=== PATIENT | male | born 1960 | race Caucasian/White ===

== ENCOUNTER 2022-08-29 13:49 | Outpatient (OUT) | payer SELFPAY ==
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
== END 2022-08-29 13:50 ==
PROVIDERS: Visit Provider Anesthesiology Pain Medicine
DX: M47.816 Spondylosis without myelopathy or radiculopathy, lumbar region (principal); M62.838 Other muscle spasm; M54.50 Low back pain, unspecified; G89.29 Other chronic pain
CPT/HCPCS: G0463

== ENCOUNTER 2022-09-01 09:10 | Outpatient (OUT) | payer SELFPAY ==
--- NOTE | 2022-09-01 09:16 | XR_ITS ---
[place] [id number] Patient Name: SHAWN RIVERS MRN: [id number] date: 1960 Sex: M Assigned Patient Location: [facility] Current Patient Location: [facility] Accession/Order Number: [id number] Exam Date: 09/01/2022 09:22 Report Date: 09/01/2022 10:24 At the request of: TEREZA COBOS Procedure: XR lumbar spine 2-3V EXAMINATION: XR lumbar spine 2-3V HISTORY: Lumbar spondylosis ; chronic low back pain, bilateral leg numbness COMPARISON: No relevant comparison available. FINDINGS: BONES: Moderate left convex curvature, and mild straightening of normal lordotic curvature of lumbar spine. Millimeters anterior listhesis of L5 on S1. Moderate-marked degenerative facet arthropathy L3-L4 through L5-S1. DISC SPACES: Moderate disc space narrowing L4-L5. Marked narrowing L2-L3, L5-S1. PARASPINOUS: Skin surface marker located posterior to L2 vertebral body. OTHER: Negative. IMPRESSION: 1. Multilevel marked degenerative disc disease and degenerative facet arthropathy. 2. Grade 1 vs grade 2 anterior listhesis of L5 on S1, likely due to bilateral pars interarticularis defects. 3. Skin surface marker is posterior to L2. Electronically authenticated by: REJI KANG Date: 09/01/2022 10:24
--- NOTE | 2022-09-01 09:45 | MR_ITS ---
[address] [address] Patient Name: SHAWN RIVERS MRN: [id number] date: 1960 Sex: M Assigned Patient Location: [facility] Current Patient Location: [facility] Accession/Order Number: [id number] Exam Date: 09/01/2022 09:45 Report Date: 09/01/2022 11:17 At the request of: TEREZA COBOS Procedure: MR lumbar spine wo con EXAMINATION: MR lumbar spine wo con HISTORY: Lumbar spondylosis ; chronic lumbar and bilateral leg pain, occasional leg numbness and weakness COMPARISON: No relevant comparison available. TECHNIQUE: A variety of imaging planes and parameters were utilized for visualization of suspected pathology. FINDINGS: For the purposes of numbering, sagittal T2 image # 9 extends from the T11 vertebral body superiorly to the S2-S3 level inferiorly. PARASPINAL AREA: Normal with no visible mass. BONES: Grade 1 anterolisthesis of L5 on S1. Straightening of normal lordotic curvature and multilevel edematous degenerative endplate changes (Modic type I). CORD/CAUDA EQUINA: Normal caliber, contour, and signal intensity. DISC LEVELS: 12-L1: Early degenerative disc disease is present without focal protrusion or neural impingement. L1-L2: Early degenerative disc disease is present without focal protrusion or neural impingement. L2-L3: Moderate-marked central canal and mild bilateral foramen narrowing. Prominent posterior disc-osteophyte complex, moderate disc height reduction, and mild degenerative facet arthropathy. L3-L4: Marked central canal and moderate bilateral foramen narrowing. Marked diffuse disc bulging without significant disc height reduction. Moderate degenerative facet arthropathy and ligamentum flavum thickening. L4-L5: Mild central canal and right foramen narrowing. Moderate left foramen narrowing. Posterior disc-osteophyte complex eccentric to the left. Marked narrowing of left lateral disc space. Moderate degenerative facet arthropathy, left greater than right. L5-S1: No significant central canal narrowing. Marked bilateral foramen narrowing. Grade 1 anterior listhesis with posterior central disc bulging, marked disc height reduction, mild degenerative facet arthropathy, bilateral pars interarticularis defects. IMPRESSION: 1. L3-L4 marked central canal narrowing; L2-L3 moderate marked central canal narrowing. Findings secondary to degenerative disc disease and facet arthropathy. 2. L5-S1 marked bilateral foramen narrowing secondary to degenerative changes and grade 1 anterolisthesis from bilateral pars interarticularis defects. 3. Additional mild-moderate narrowing at remaining lumbar levels. Electronically authenticated by: REJI KANG Date: 09/01/2022 11:17
== END 2022-09-01 09:11 | disposition home or self-care (01) ==
LOC: RAD 09:10
PROVIDERS: Visit Provider Anesthesiology Pain Medicine
DX: M47.816 Spondylosis without myelopathy or radiculopathy, lumbar region (principal); R20.0 Anesthesia of skin; R53.1 Weakness; M51.36 Other intervertebral disc degeneration, lumbar region
CPT/HCPCS: 72100; 72148

== ENCOUNTER 2022-09-26 09:52 | Day surgery (SDC) | payer SELFPAY ==
[2022-09-26 10:11] VITALS: BP 155/99; PULSE 82; RESP 16; TEMP 36.3; O2SAT 97
[2022-09-26 10:41] VITALS: RESP 20
[2022-09-26 10:43] VITALS: BP 144/76; PULSE 83; O2SAT 96
[2022-09-26] MEDS: BUPIVACAINE HCL 0.25% PF 25 MG/10 ML VIAL 8 ML INJ (10:44)
--- NOTE | 2022-09-26 10:44 | P.ON_ITS ---
Date of procedure: 09/26/22 Pre-op diagnosis: Lumbar Spondylosis Post-op diagnosis: same Procedure: Bilateral Lumbar 4/5, 5/S1 facet injection Under fluoroscopic guidance Solution injected: 2millilitersMarcaine 0.25% Anesthesia :none Immediate complications none Time out process compliant After informed consent obtained from the patient placed in the Prone proposition . area was prepped and draped in a sterile fashion using betadine. 25 gauge spinal needle inserted over each of the above mentioned target areas . [place] were directed towards the target under fluoroscopic guidance . after encountering each of the targets , no indication of intravascular intraneuronal or intrathecal needle tip placement. Then 0 .5 to 1 Milliliter was injected at each level. [place] removed postoperatively. patient transferred to recovery in stable condition to be discharged home after meeting criteria Surgeon: Baljeet Hickey
[2022-09-26 10:48] VITALS: BP 146/74; PULSE 88; O2SAT 96
== END 2022-09-26 10:53 | disposition home or self-care (01) ==
LOC: SURGOUT 09:53
PROVIDERS: Visit Provider Anesthesiology Pain Medicine
DX: M47.816 Spondylosis without myelopathy or radiculopathy, lumbar region (principal)
CPT/HCPCS: 64493; 64494

== ENCOUNTER 2022-10-25 09:12 | Outpatient (OUT) | payer SELFPAY ==
--- NOTE | 2022-10-25 | CONS_ITS ---
CONSULTATION DATE: ??10/25/2022 TO:? Dr. Kinza Tolbert Patient: Gregor Davalos CHIEF COMPLAINT:? Patient was sent today complaining of bilateral hip pain, as well as bilateral lower back pain, worse on the right than the left side. HISTORY:? He reports it being 5-7/10 pain, described as a pressure sensation with a deep, sharp component, which seems to increase with activities such as standing and walking.? He feels most comfortable in the semi-recumbent position.? Denies any change in bowel and bladder habits or new sensorimotor changes in the lower extremities. MEDICATIONS:? Current medication includes baclofen 10 mg t.i.d.? He reports this does seem to help with his pain symptoms. EXAMINATION:? Notable for patient having no clinical radiculopathy or myelopathy involving the lower extremities.? Patient did have severe pain with lumbar facet loading maneuvers, occurring bilaterally from L4 through S1 with associated myofascial spasm of the lumbar paravertebral muscles.? He has undergone one diagnostic facet joint injection at L4-5, L5-S1.? He reports he was 100% improved starting in the immediate post procedural period, lasting for several hours, with recurrence of pain back to baseline.? IMPRESSION:? At this point, patient?s pain appears to be related to lumbosacral spondylosis and facet joint loading pain clinically, as well as bilateral hip joint pain, right worse than left,? He has had a positive bilateral FABERs sign, worse on the right than the left side.? RECOMMENDATIONS:? I recommend obtaining bilateral hip films, proceeding with a second diagnostic facet joint injection at L4-5, L5-S1. I have increased his baclofen 10 mg pills, 1-2 t.i.d., as he continues to have a fair amount of myofascial spasm of the lumbar paravertebral muscles.? He still expressed the desire to avoid surgery if at all possible.? As part of providing excellent, safe, comprehensive care, the following was completed at our patient's visit: 1. A medication reconciliation and review to ensure accurate knowledge of current/active medications, including asking our patients to inform us about any lorp-pqg-kownlnf medications or herbal remedies/nutritional supplements/alternative remedies. 2. A review to specifically ensure our patients have had annual screening for: elevated body mass index (BMI, see intake chart for exact total), tobacco use, screening for depression, and screening for unhealthy alcohol use.? When screening is concerning, patients are provided with education and the specific recommendation to discuss the concerning health issue and treatment options with their primary care provider. KATHRYN
== END 2022-10-25 09:13 | disposition home or self-care (01) ==
LOC: PM 09:12
PROVIDERS: Visit Provider Nurse Practitioner
DX: M47.817 Spondylosis without myelopathy or radiculopathy, lumbosacral region (principal); M25.551 Pain in right hip; M25.552 Pain in left hip
CPT/HCPCS: G0463

== ENCOUNTER 2022-11-28 08:11 | Day surgery (SDC) | payer SELFPAY ==
[2022-11-28 08:39] VITALS: BP 148/87; PULSE 69; RESP 16; TEMP 36.3; O2SAT 97
[2022-11-28 09:42] VITALS: RESP 20
[2022-11-28 09:43] VITALS: BP 136/84; PULSE 85; O2SAT 96
[2022-11-28] MEDS: BUPIVACAINE HCL 0.25% PF 25 MG/10 ML VIAL 8 ML INJ (09:44)
[2022-11-28 09:48] VITALS: BP 147/87; PULSE 83; O2SAT 94
--- NOTE | 2022-11-28 10:06 | P.ON_ITS ---
Date of procedure: 11/28/22 Pre-op diagnosis: Lumbar Spondylosis Post-op diagnosis: same as pre-op Procedure: Bilateral lumbar 4/5, 5/s1 facet injection Under fluoroscopic guidance Solution injected: 2millilitersMarcaine 0.25% Anesthesia :none Immediate complications none Time out process compliant After informed consent obtained from the patient placed in the Prone proposition . area was prepped and draped in a sterile fashion using betadine. 25 gauge spinal needle inserted over each of the above mentioned target areas . [place] were directed towards the target under fluoroscopic guidance . after encountering each of the targets , no indication of intravascular intraneuronal or intrathecal needle tip placement. Then 0 .5 to 1 Milliliter was injected at each level. [place] removed postoperatively. patient transferred to recovery in stable condition to be discharged home after meeting criteria Anesthesia: Local Surgeon: Baljete Hickey Condition: stable
== END 2022-11-28 09:54 | disposition home or self-care (01) ==
LOC: SURGOUT 08:12
PROVIDERS: Visit Provider Anesthesiology Pain Medicine
DX: M47.816 Spondylosis without myelopathy or radiculopathy, lumbar region (principal)
CPT/HCPCS: 64493; 64494

== ENCOUNTER 2022-12-06 08:45 | Outpatient (OUT) | payer SELFPAY ==
--- NOTE | 2022-12-06 08:51 | P.CN_ITS ---
Consult Note: HPI Data of Consult Patient: known to practice within the last 3 years Requesting Physician: Jenny Patricia NP Primary Care Provider: Non-Staff Physician, Consult Narrative Reason for consult: MBB f/u Narrative: Gregor Davalos a pleasant 62 year old male presents for evaluation of chronic low back pain. Patient recently underwent Bilateral MBB #2 at L4-5 L5-S1 with >80% pain relief and functional improvement immediately after and 1 day following the procedure. Patient would like to discuss proceeding with thermal RFA as he has failed conservative measures and home exercise. Today rating pain 6/10 in low back. cc:: CC: Jenny Patricia NP Review of Systems ROS Status of ROS 10 or more systems reviewed and unremarkable except as noted in history and below Musculoskeletal Reports: back pain PFSH PFSH Medical History Meds Home Medications and Allergies Home Medications Medication Instructions Recorded Confirmed Type atorvastatin 40 mg tablet (Lipitor) 40 mg PO DAILY 08/29/22 11/28/22 History baclofen 10 mg tablet 10 mg PO TID 08/29/22 11/28/22 History ibuprofen 800 mg tablet 800 mg PO TID PRN pain 08/29/22 11/28/22 History ropinirole 3 mg tablet 3 mg PO BID 08/29/22 11/28/22 History Allergies Allergy/AdvReac Type Severity Reaction Status Date / Time No Known Drug Allergies Allergy Verified 11/28/22 08:42 Exam Constitutional Documenting provider has reviewed patient's vital signs: yes Common normals: no apparent distress, oriented x3, healthy appearing, alert and well nourished General appearance: cooperative HENMT Common normals: normocephalic, hearing grossly normal bilaterally and moist oral mucous membranes Head and scalp: normocephalic Eye Common normals: PERRL Pupil: PERRL Neck & C-Spine Common normals: full ROM General: normal visual inspection Chest Common normals: inspection of chest normal Respiratory Common normals: normal respiratory effort, no retractions and no use of accessory muscles Back & Pelvis Lumbar spine/lower back: ROM limited, pain with ROM and straight leg raise negative bilaterally Other: bilateral facet loading Extremity Common normals: normal to inspection and full ROM Neuro Common normals: oriented x3, CN's II-XII intact bilaterally, moves all extremities, no focal motor deficits, no sensory deficits noted, deep tendon reflexes 2+ bilaterally and gait normal Sensorium/orientation: alert Motor exam: strength 5/5 throughout and no movement abnormalities noted Psych Common normals: mental status grossly normal, thought process normal, cooperative, affect normal, speech normal and activity/motor behavior normal Speech: normal speech Thought process: normal thought process Results Additional Findings Additional findings: I have checked an [place]AR[place] report on this patient today and there are no aberrancies noted in the prescribing history.?? A drug screen was completed and reviewed within the last year, and if there has not been a drug screen completed we ordered one today to monitor higher risk, state monitored pain medication use. As part of providing excellent, safe, comprehensive care, the following was completed at our patient's visit: 1. A medication reconciliation and review to ensure accurate knowledge of current/active medications, including asking our patients to inform us about any eqpe-heq-aczzxdr medications or herbal remedies/nutritional supplements/alternative remedies. 2. A review to specifically ensure our patients have had annual screening for: elevated body mass index (BMI), tobacco use, screening for depression, and screening for unhealthy alcohol use. When screening is concerning, patients are provided with education and the specific recommendation to discuss the concerning health issue and treatment options with their primary care provider. The patient has had over 3 months of moderate to severe low back pain with functional impairment and inadequate response to conservative care including NSAIDS (unless there are contraindication such as concurrent blood thinners), multiple oral or topical pain medications, and home exercise program/physical t herapy.? I have reviewed the imaging of the lumbar spine and no red flags were identified.? The imaging reveals radiographic findings consistent with lumbar spondylosis We discussed the risks and benefits of the procedure with the patient, and we are NOT planning on using sedation as outlined in the guidelines from Medicare unless there is a documented reason that sedation would be strongly mariluz mmended.?? The procedure will be completed with fluoroscopic guidance.? Assessment and Plan Assessment and Plan (1) Lumbar spondylosis: (2) Recovering alcoholic: (3) Former smoker: Plan -proceed with right then left L4-5 L5-S1 thermal RFA under fluoroscopy without sedation -continue current medications -continue HEP -f/u 4 weeks after RFAs completed
== END 2022-12-06 08:46 | disposition home or self-care (01) ==
PROVIDERS: Visit Provider Nurse Practitioner
DX: M47.816 Spondylosis without myelopathy or radiculopathy, lumbar region (principal); Z87.891 Personal history of nicotine dependence; F10.21 Alcohol dependence, in remission
CPT/HCPCS: G0463

== ENCOUNTER 2022-12-26 07:00 | Day surgery (SDC) | payer SELFPAY ==
[2022-12-26 07:21] VITALS: BP 159/81; PULSE 95; RESP 14; TEMP 36.3; O2SAT 97
[2022-12-26 07:36] VITALS: BP 155/95; PULSE 81; RESP 18; O2SAT 93
[2022-12-26] MEDS: METHYLPREDNISOLONE ACETATE 40 MG/ML VIAL INJ (07:38)
[2022-12-26] MEDS: LIDOCAINE HCL 2% 400 MG/20 ML MDV 10 ML INJ (07:38)
[2022-12-26] MEDS: BUPIVACAINE HCL 0.25% PF 25 MG/10 ML VIAL 4 ML INJ (07:38)
[2022-12-26 07:40] VITALS: BP 160/83; PULSE 88; RESP 18; O2SAT 94
--- NOTE | 2022-12-26 09:19 | W.PM.PROCNOT ---
Date of procedure: 12/26/22 Pre-op diagnosis: Lumbar Spondylosis Post-op diagnosis: same as pre-op Procedure: Right Lumbar 4/5, 5/sacral 1 Radiofrequency ablation Under fluoroscopic guidance Rhizotomy was created using radio frequency ablation at 80?C for 90 seconds 1 to 2 lesions created at each site. Post lesioning injection of 2 mL each of 0.25% Marcaine and 2% lidocaine with Depo-Medrol 40mg. 0.5 to 1 mL injected at each site IV in place no If Intravenous fluids: NS at KVO Anesthesia local 2% lidocaine for Anesthesia Other: local Timeout process compliant After informed consent obtained.Patient brought to the procedure room placed in the prone position skin overlying the area was prepped and draped in a sterile fashion using betadine. 25 gauge needle was used to create a skin wheal over each of the targeted areas utilizing 2% lidocaine. A rhizotomy needle with a 10 mm active tip was inserted over each of the anesthetized areas and directed towards each of the medial branches accomplished under fluoroscopic guidance. after encountering the same we had positive sensory stimulation, negative motor stimulation was noted. lesions were then created. Post lesioning, steroid solution was injected needles removed. Patient was transferred to recovery room in stable condition to be discharged home after meeting criteria. Anesthesia: Local Surgeon: Baljeet Hickey Condition: stable
== END 2022-12-26 07:56 | disposition home or self-care (01) ==
PROVIDERS: Visit Provider Anesthesiology Pain Medicine
DX: M47.816 Spondylosis without myelopathy or radiculopathy, lumbar region (principal)
CPT/HCPCS: 64635; 64636; J1030

== ENCOUNTER 2023-01-04 10:15 | Outpatient (OUT) | payer SELFPAY ==
--- NOTE | 2023-01-04 10:19 | PM.CN ---
Consult Note: HPI Data of Consult Patient: known to practice within the last 3 years Requesting Physician: Jenny Patricia NP Primary Care Provider: Non-Staff Physician, MD Consult Narrative Reason for consult: F/u Narrative: Gregor Davalos a pleasant 62 year old male presents for evaluation and management of low back pain. Patient had a Right Lumbar 4/5, 5/sacral 1 Radiofrequency ablation on 12/26/22 and on 12/28/22 noticed increase in pain when he woke up. Patient has numbness and tingling in right foot, tightness in right buttock, and moderate to severe low back pain. Patient has had no loss of bowel/bladder, fevers or chills. Patient rating pain 9/10 in low back, has not responded to ibuprofen or baclofen. Has tried icy hot without relief. Is reporting significant functional impairment and today's MARIA TERESA 52%. 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.21 - Alcohol dependence, in remission (ICD-10) Meds Home Medications and Allergies Home Medications Medication Instructions Recorded Confirmed Type atorvastatin 40 mg tablet (Lipitor) 40 mg PO DAILY 08/29/22 12/26/22 History baclofen 10 mg tablet 10 mg PO TID 08/29/22 12/26/22 History ibuprofen 800 mg tablet 800 mg PO TID PRN pain 08/29/22 12/26/22 History ropinirole 3 mg tablet 3 mg PO BID 08/29/22 12/26/22 History diclofenac sodium 50 mg 100 mg PO BID #120 tabs 01/04/23 Rx tablet,delayed release lidocaine 5 % topical patch 1 patch topical DAILY #30 ea 01/04/23 Rx methocarbamol 1,000 mg tablet 1,000 mg PO TID #90 tabs 01/04/23 Rx Allergies Allergy/AdvReac Type Severity Reaction Status Date / Time No Known Drug Allergies Allergy Verified 12/26/22 07:18 Exam Constitutional Documenting provider has reviewed patient's vital signs: yes Common normals: oriented x3, healthy appearing, alert and well nourished Exam limitations: physical limitations General appearance: cooperative and in distress HENMT Common normals: normocephalic, hearing grossly normal bilaterally and moist oral mucous membranes Head and scalp: normocephalic Eye Common normals: PERRL Pupil: PERRL Neck & C-Spine Common normals: full ROM General: normal visual inspection Chest Common normals: inspection of chest normal Respiratory Common normals: normal respiratory effort, no retractions and no use of accessory muscles Other: reports drinking less water and in return urinating less, denies hematuria or increase in frequency or urgancy. no loss of bowel or bladder Back & Pelvis Lumbar spine/lower back: ROM limited, pain with ROM and straight leg raise negative bilaterally Sacroiliac joints: SI joint(s) abnormal (negative thigh thrust, gaenslens, FABERs. ) Other: negative internal and external hip rotation no redness edema or warmth to low back, non tender to touch. procedure site not concerning for localized infection Patient reporting pain and muscle tightness/spasming over right buttock and right hip, negative hip and SIJ exam weakness in right leg related to low back pain and radiculopathy following l5 dermatome to right leg bilateral low back pain over L4-5 L5-s1 facets Neuro Common normals: oriented x3, CN's II-XII intact bilaterally, moves all extremities, no focal motor deficits, no sensory deficits noted and deep tendon reflexes 2+ bilaterally Sensorium/orientation: alert Motor exam: strength 5/5 throughout and no movement abnormalities noted Psych Common normals: mental status grossly normal, thought process normal, cooperative, affect normal, speech normal and activity/motor behavior normal Speech: normal speech Thought process: normal thought process Results Additional Findings Additional findings: I have checked an [place]AR[facility] report on this patient today and there are no aberrancies noted in the prescribing history.?? A drug screen was completed and reviewed within the last year, and if there has not been a drug screen completed we ordered one today to monitor higher risk, state monitored pain medication use. As part of providing excellent, safe, comprehensive care, the following was completed at our patient's visit: 1. A medication reconciliation and review to ensure accurate knowledge of current/active medications, including asking our patients to inform us about any [id number] medications or herbal remedies/nutritional supplements/alternative remedies. 2. A review to specifically ensure our patients have had annual screening for: elevated body mass index (BMI), tobacco use, screening for depression, and screening for unhealthy alcohol use. When screening is concerning, patients are provided with education and the specific recommendation to discuss the concerning health issue and treatment options with their primary care provider. Assessment and Plan Assessment and Plan (1) Low back pain: (2) Lumbar spondylosis: (3) Lumbar radiculopathy: (4) Lumbar neuritis: Assessment and Plan: r/o lumbar neuritis (5) Muscle spasm: Plan CBC, CRP, Sed rate to rule out infection start diclofenac 100mg BID PRN with food, not to be taken with other NSAIDs start robaxin 500-1000mg TID PRN muscle spasms start lidocaine patch 5% 12 hours on 12 hours off to low back and right buttock Consider MRI with and without Contrast of Lumbar Spine Consider Medrol dose pack or gabapentin if this is neuritis post RFA With hx of alcohol abuse defer on opioid therapy at this time as discussed with patient Patient to go to ER if he develops fevers, chills, increase in pain or loss of bowel or bladder Patient will call tomorrow to discuss effectiveness of medication changes Called patient this afternoon, he has not picked up his medications yet. We discussed his lab results, WNL. Will call him tomorrow morning to discuss pain and medication changes. Will order MRI or CT without contrast tomorrow if pain has not improved and consider medrol dose pack. Discussed case with Dr Hickey.
== END 2023-01-04 10:16 | disposition home or self-care (01) ==
PROVIDERS: Visit Provider Nurse Practitioner
DX: M54.50 Low back pain, unspecified (principal); M47.26 Other spondylosis with radiculopathy, lumbar region; M62.838 Other muscle spasm
CPT/HCPCS: G0463

== ENCOUNTER 2023-01-04 11:10 | Outpatient (OUT) | payer SELFPAY ==
[2023-01-04 11:24] LABS: Basophils Absolute Auto 0.1 10^3/uL (0.0-0.1); Basophils Percent Auto 0.7 % (0.2-2.0); Eosinophils Absolute Auto 0.1 10^3/uL (0.0-0.7); Eosinophils Percent Auto 1.4 % (0.9-7.0); Hematocrit 45.3 % (42.0-54.0); Hemoglobin 15.5 g/dL (14.0-18.0); Immature Granulocytes Abs Auto 0.02 10^3/uL (0.00-0.03); Immature Granulocytes Pct Auto 0.3 % (0.0-0.5); Lymphocytes Absolute Auto 1.9 10^3/uL (1.2-3.8); Lymphocytes Percent Auto 27.5 % (20.5-60.0); Mean Corpuscular HGB Conc 34.2 g/dL (29.9-35.2); Mean Corpuscular Hemoglobin 30.7 pg (25.9-34.0); Mean Corpuscular Volume 89.7 fL (80.0-94.0); Mean Platelet Volume 9.9 fL (9.5-13.5); Monocytes Absolute Auto 0.5 10^3/uL (0.3-0.8); Monocytes Percent Auto 6.7 % (1.7-12.0); Neutrophils Absolute Auto 4.4 10^3/uL (1.4-6.5); Neutrophils Percent Auto 63.4 % (43.0-75.0); Platelet Count 268 10^3/uL (150-450); Red Blood Count 5.05 10^6/uL (4.70-6.10); Red Cell Distribution Width 12.4 % (11.0-15.0)
[2023-01-04 11:28] LABS: Erythrocyte Sedimentation Rate 18 mm/hr (<=20)
[2023-01-04 11:48] LABS: C Reactive Protein <0.2 mg/dL (<=1.0)
== END 2023-01-04 11:11 | disposition home or self-care (01) ==
LOC: LAB 11:11
PROVIDERS: Visit Provider Nurse Practitioner
DX: M54.9 Dorsalgia, unspecified (principal); Z98.890 Other specified postprocedural states
CPT/HCPCS: 36415; 85025; 85652; 86140

== ENCOUNTER 2023-01-12 09:21 | Outpatient (OUT) | payer SELFPAY ==
--- NOTE | 2023-01-12 09:30 | MR_ITS ---
[place] [id number] Patient Name: SHAWN RIVERS MRN: [facility]:[id number] date: 1960 Sex: M Assigned Patient Location: MRI Current Patient Location: MRI Accession/Order Number: [id number] Exam Date: 01/12/2023 09:36 Report Date: 01/12/2023 15:54 At the request of: KATHY BAKER Procedure: MR lumbar spine wo con EXAMINATION: MR lumbar spine wo con HISTORY: Lumbar Radiculopathy COMPARISON: No relevant comparison available. TECHNIQUE: A variety of imaging planes and parameters were utilized for visualization of suspected pathology. FINDINGS: For the purposes of numbering, sagittal T2 image # 9 extends from the T11 vertebral body superiorly to the S3 level inferiorly. PARASPINAL AREA: Normal with no visible mass. BONES: Moderate diffuse degenerative spondylosis and facet osteoarthropathy. Areas of increased or signal lower half of the L3 vertebral body and upper endplate of the L4 vertebral body suggesting bone edema. Additional Modic type II changes noted throughout the spine. 9 mm anterolisthesis of L5 in relation S1 with bilateral L5 pars interarticularis fractures CORD/CAUDA EQUINA: Normal caliber, contour, and signal intensity. Heterogeneous appearance of the intrathecal sac likely related to flow artifact DISC LEVELS: 12-L1: Moderate disc space narrowing and disc desiccation. Mild diffuse disc bulge. No central or foraminal stenosis L1-L2: Moderate disc space narrowing and disc desiccation. No disc bulge or herniation. No central or foraminal stenosis L2-L3: Moderate to severe disc space narrowing with endplate sclerosis right greater than left. Moderate to moderate diffuse disc/osteophyte complex. No central or foraminal stenosis L3-L4: Mild disc space narrowing and moderate disc desiccation. Posterior broad-based disc herniation with a posterior central protrusion element measuring up to 6.1 mm transversely on sagittal image #9 with an extrusion component extending inferiorly sagittal image #10 measuring 8.2 x 5.6 mm and superiorly sagittal image #7 measuring 6.4 x 4 mm. Severe ligamentum flavum hypertrophy and facet osteoarthropathy. Moderate to severe narrowing of the central canal. Moderate right and no left foraminal stenosis L4-L5: Moderate to severe disc space narrowing left greater than right with endplate sclerosis. Moderate diffuse disc/osteophyte complex and facet osteoarthropathy. No central or right foraminal stenosis . Mild left foraminal stenosis L5-S1: 9 mm anterolisthesis of L5 on S1 with bilateral L5 pars interarticularis fractures. Moderate diffuse disc bulge/pseudobulge and facet osteoarthropathy. Moderate to severe right and severe left foraminal stenosis These findings were discussed with the patient and surgical consultation is recommended MR/MR lumbar spine wo con IMPRESSION: Extensive degenerative changes resulting in central and foraminal stenosis at multiple levels as detailed above Bone edema L3 and L4 vertebral bodies, possibly related to recent radiofrequency ablation Electronically authenticated by: CELESTE CAO Date: 01/12/2023 15:54
== END 2023-01-12 09:22 | disposition home or self-care (01) ==
LOC: MRI 09:21
PROVIDERS: Visit Provider Nurse Practitioner
DX: M54.16 Radiculopathy, lumbar region (principal); M51.36 Other intervertebral disc degeneration, lumbar region; M48.061 Spinal stenosis, lumbar region without neurogenic claudication
CPT/HCPCS: 72148

== ENCOUNTER 2023-01-16 07:29 | Day surgery (SDC) | payer SELFPAY ==
[2023-01-16 07:42] VITALS: BP 160/95; PULSE 98; RESP 16; TEMP 36.7; O2SAT 96
[2023-01-16 08:42] VITALS: BP 148/82; PULSE 78; RESP 18; O2SAT 96
[2023-01-16] MEDS: METHYLPREDNISOLONE ACETATE 80 MG/ML VIAL INJ (08:42)
[2023-01-16] MEDS: LIDOCAINE HCL 2% PF 100 MG/5 ML VIAL 2 ML INJ (08:42)
[2023-01-16] MEDS: IOHEXOL 300 MG/ML - 50 ML BTL 18 MG INJ (08:42)
[2023-01-16] MEDS: BUPIVACAINE HCL 0.25% PF 25 MG/10 ML VIAL 2 ML INJ (08:42)
[2023-01-16] MEDS: 0.9 % SODIUM CHLORIDE 10 ML SYRINGE - SALINE FLUSH 2 ML INJ (08:42)
[2023-01-16 08:43] VITALS: BP 149/88; PULSE 76; RESP 16; O2SAT 96
--- NOTE | 2023-01-16 09:38 | P.ON_ITS ---
Date of procedure: 01/16/23 Pre-op diagnosis: lumbar radiculopathy Post-op diagnosis: same as pre-op Procedure: Lumbar 4/5 Epidural Steroid Injection Under fluoroscopic guidance Immediate complications none Solution used for injection: Marcaine 0.25% 2mL, 2cc Normal saline, Depo-Medrol 80mg Omnipaque 3 mL Anesthesia local 2% lidocaine up to 4ml Timeout process compliant After informed consent obtained. Patient brought to the procedure room placed in the prone position. Skin overlying the area was prepped and draped in a sterile fashion using betadine. 25 gauge needle used to raise a skin wheel with local anesthetic over the target area identified under fluoroscopy. A 17 gauge Touhy needle Was inserted over the anesthetized area and directed towards the inter- space under fluoroscopic guidance. Epidural space was identified with loss of resistance technique to air. Needle Tip placement confirmed with injection of contrast solution. Steroid solution was then injected. Anesthesia: Local Surgeon: Baljeet Hickey Condition: stable
== END 2023-01-16 08:52 | disposition home or self-care (01) ==
LOC: SURGOUT 07:30
PROVIDERS: Visit Provider Anesthesiology Pain Medicine
DX: M54.16 Radiculopathy, lumbar region (principal)
CPT/HCPCS: 62323; J1040; Q9967

== ENCOUNTER → 2023-02-13 08:44 | Day surgery (SDC) | payer SELFPAY ==
[2023-02-13 07:29] VITALS: BP 149/88; PULSE 100; RESP 16; TEMP 36.9; O2SAT 97
[2023-02-13 08:28] VITALS: BP 140/66; BP 145/85; PULSE 85; PULSE 93; RESP 18; O2SAT 97
[2023-02-13] MEDS: METHYLPREDNISOLONE ACETATE 40 MG/ML VIAL 20 MG INJ (08:36)
[2023-02-13] MEDS: LIDOCAINE HCL 2% 400 MG/20 ML MDV 9 ML INJ (08:36)
[2023-02-13] MEDS: BUPIVACAINE HCL 0.25% PF 25 MG/10 ML VIAL 2 ML INJ (08:36)
--- NOTE | 2023-02-13 09:21 | W.PM.PROCNOT ---
Date of procedure: 02/13/23 Pre-op diagnosis: Lumbar Spondylosis Post-op diagnosis: same as pre-op Procedure: Left Lumbar 4/5, 5/sacral 1 Radiofrequency ablation Under fluoroscopic guidance Rhizotomy was created using radio frequency ablation at 80?C for 90 seconds 1 to 2 lesions created at each site. Post lesioning injection of 2 mL each of 0.25% Marcaine and 2% lidocaine with Depo-Medrol 40mg. 0.5 to 1 mL injected at each site IV in place no If Intravenous fluids: NS at KVO Anesthesia local 2% lidocaine for Anesthesia Other: local Timeout process compliant After informed consent obtained.Patient brought to the procedure room placed in the prone position skin overlying the area was prepped and draped in a sterile fashion using betadine. 25 gauge needle was used to create a skin wheal over each of the targeted areas utilizing 2% lidocaine. A rhizotomy needle with a 10 mm active tip was inserted over each of the anesthetized areas and directed towards each of the medial branches accomplished under fluoroscopic guidance. after encountering the same we had positive sensory stimulation, negative motor stimulation was noted. lesions were then created. Post lesioning, steroid solution was injected needles removed. Patient was transferred to recovery room in stable condition to be discharged home after meeting criteria. Anesthesia: Local Surgeon: Baljeet Hickey Condition: stable
== END | disposition home or self-care (01) ==
PROVIDERS: Visit Provider Anesthesiology Pain Medicine
DX: M47.816 Spondylosis without myelopathy or radiculopathy, lumbar region (principal)
CPT/HCPCS: 64635; 64636; J1030

== ENCOUNTER 2023-03-08 08:46 | Outpatient (OUT) | payer SELFPAY ==
--- OUTSIDE RECORDS SUMMARY | 2023-03-08 08:50 | XMS_ITS | CCD ---
Author Name Unknown Address [address] [place] [address] Organization [facility] Care Team Providers Care Director Investment [employer]ing Name Role Phone TOPETE, KINZA Unavailable Unavailable TOPETE, KINZA R Unavailable Unavailable TOPETE, KINZA Unavailable Unavailable TOPETE, KINZA R Unavailable Unavailable CHUNG, ANITRA Unavailable Unavailable TOPETE, KINZA R Unavailable Unavailable TOPETE, KINZA Unavailable Unavailable CHUNG, ANITRA Unavailable Unavailable TOPETE, KINZA R Unavailable Unavailable TOPETE, KINZA R Unavailable Unavailable MEETA MURPHY Unavailable Unavailable RADHA OROPEZA Unavailable Unavailable CHUNG, ANITRA Unavailable Unavailable DAMTEW, BELAI Unavailable Unavailable CHUNG, ANITRA Unavailable Unavailable CHUNG, ANITRA Unavailable Unavailable TOPETE, KINZA R Unavailable Unavailable TOPETE, KINZA Unavailable Unavailable TOPETE, KINZA R Unavailable Unavailable CHUNG, ANITRA Unavailable Unavailable TOPETE, KINZA R Unavailable Unavailable TOPETE, KINZA R Unavailable Unavailable RICE, SRIKANTH Unavailable Unavailable DAMTEW, BELAI Unavailable Unavailable CHUNG, ANITRA Unavailable Unavailable DAMTEW, BELAI Unavailable Unavailable TOPETE, KINZA R Unavailable Unavailable TOPETE, KINZA Unavailable Unavailable TOPETE, KINZA R Unavailable Unavailable TOPETE, KINZA Unavailable Unavailable TOPETE, KINZA R Unavailable Unavailable WEST, CELESTE V Admitting Unavailable WEST, CELESTE V Attending Unavailable WEST, CELESTE V Consulting Unavailable WEST, CELESTE V Admitting Unavailable WEST, CELESTE V Attending Unavailable WEST, CELESTE V Consulting Unavailable WEST, CELESTE V Admitting Unavailable WEST, CELESTE V Attending Unavailable WEST, CELESTE V Consulting Unavailable WEST, CELESTE V Admitting Unavailable WEST, CELESTE V Attending Unavailable WEST, CELESTE V Consulting Unavailable WEST, CELESTE V Admitting Unavailable WEST, CELESTE V Attending Unavailable WEST, CELESTE V Consulting Unavailable WEST, CELESTE V Admitting Unavailable WEST, CELESTE V Attending Unavailable WEST, CELESTE V Consulting Unavailable WEST, CELESTE V Admitting Unavailable WEST, CELESTE V Attending Unavailable WEST, CELESTE V Consulting Unavailable WEST, CELESTE V Admitting Unavailable WEST, CELESTE V Attending Unavailable WEST, CELESTE V Consulting Unavailable WEST, CELESTE V Admitting CELESTE Rousseau V Attending CELESTE Rousseau V Consulting Unavailable Kinza Topete Primary Care Provider KINZA TOPETE Primary Care Unavailable KINZA TOPETE MD Attending Unavailable Callum Lake MD Attending Callum Henry MD Attending Callum Henry MD Attending Ирина griffin Medications Completed/Discontinued Medications Medication Drug Class(es) Dates Sig (Normalized) Sig (Original) chlorzoxazone 375 mg oral tablet (1 source) Muscle Relaxant Start: 06-23-2014 take 1 tablet by mouth three times daily as needed chlorzoxazone (LORZONE) 375 mg tab Indications: Back pain Take 1 tablet by mouth three times daily as needed. 30 tablet 0 06/23/2014 Active Comment on above: Take 1 tablet by priscila th three times daily as needed. escitalopram 10 mg oral tablet (1 source) Serotonin Reuptake Inhibitor Start: 01-19-2014 take 1 tablet by mouth once daily escitalopram oxalate (LEXAPRO) 10 mg tablet Take 1 tablet by mouth once daily. 90 tablet 3 01/19/2014 Active Comment on above: Take 1 tablet by priscila th once daily. fluticasone propionate 0.05 mg/actuat metered dose nasal spray (1 source) Corticosteroid Start: 12-15-2013 take 2 spray(s) nasal route once daily at bedtime fluticasone (FLONASE) 50 mcg/actuation nasal spray Use 2 Sprays in each nostril daily at bedtime. Use as directed. 1 Bottle 3 12/15/2013 Active Comment on above: Use 2 Sprays in each nostril daily at bedtime. Use as directed. ibuprofen 600 mg oral tablet (1 source) Nonsteroidal Anti-inflammatory Drug Start: 09-26-2010 take 1 tablet by mouth every six hours as needed ibuprofen (MOTRIN) 600 mg ORAL tablet Take 1 tablet by mouth every 6 hours as needed. 100 tablet 3 09/26/2010 Active Comment on above: Take 1 tablet by priscila th every 6 hours as needed. pramipexole dihydrochloride 0.5 mg oral tablet (1 source) Nonergot Dopamine Agonist Start: 01-19-2014 take 2 tablets by mouth once daily at bedtime pramipexole (MIRAPEX) 0.5 mg tablet Take two (2) tablets by mouth daily at bedtime 90 tablet 3 01/19/2014 Active Comment on above: Take two (2) tablets by mouth daily at bedtime Problems Active Problems Problem Classification Problem Date Documented Da te Episodic/Chronic Anxiety disorders (1 source) Anxiety; Translations: [Anxiety disorder, unspecified] Onset: 08-22-2018 08-22-2018 Chronic Cataract (1 source) Nuclear senile cataract; Translations: [Age-related nuclear cataract, right eye] Onset: 08-22-2018 08-22-2018 Chronic Other hereditary and degenerative nervous system conditions (1 source) Restless legs; Translations: [Restless legs syndrome] Onset: 08-22-2018 08-22-2018 Chronic Other nutritional; endocrine; and metabolic disorders (1 source) Body mass index 30+ - obesity; Translations: [Obesity, unspecified] Onset: 08-22-2018 08-22-2018 Chronic Past or Other Problems Problem Classification Problem Date Documented Da te Episodic/Chronic Other aftercare (4 sources) Encounter for surgical aftercare following surgery on the circulatory system; Translations: [ENC SURG [facility] FLW SURG CIRC SYS] Onset: 8 Episodic Phlebitis; thrombophlebitis and thromboembolism (10 sources) Phlebitis and thrombophlebitis of superficial vessels of left lower extremity; Translations: [Phlebitis and thrombophlebitis of superficial vessels of right lower extremity] Onset: 8 Episodic Screening and history of mental health and substance abuse codes (1 source) Ex-smoker; Translations: [Personal history of nicotine dependence] Onset: 9 08-22-2018 Episodic Varicose veins of lower extremity (6 sources) Varicose veins of bilateral lower extremities with pain; Translations: [Varicose veins of bilateral lower extremities with other complications] Onset: 8 Episodic Results Test Name Value Interpretation Reference Range Facility Tammy 07-04-2022 [facility] Telephone ([facility]) -------- GREGOR DAVALOS ([id number]) 1960 M Date Time Provider Department 07/04/22 CAROL [facility]YS [facility] During your visit today, we recorded the following information about you: Ambika Bundy 07/04/2022 1:15 PM Signed Received website lead. Called both numbers in patient's chart to schedule. One is disconnected, and the other has a vm box that is full and I could not leave a message. I will have to try back later. Ambika Bundy 07/11/2022 8:28 AM Signed Called a second time and vm box is still full. Patient does not have MC. Ambika Gregor Allergies As of Date: 07/04/2022 (No Known Allergies) Date Reviewed: 08/27/2018 Reviewed by: Annelise (Rn) ANN Hollins - Fully Assessed Reason for Visit: Appointment [[id number]] Prescriptions as of 07/11/2022 - chlorzoxazone (LORZONE) 375 mg tab Take 1 tablet by mouth three times daily as needed. - escitalopram oxalate (LEXAPRO) 10 mg tablet Take 1 tablet by mouth once daily. - pramipexole (MIRAPEX) 0.5 mg tablet Take two (2) tablets by mouth daily at bedtime - fluticasone (FLONASE) 50 mcg/actuation nasal spray Use 2 Sprays in each nostril daily at bedtime. Use as directed. - ibuprofen (MOTRIN) 600 mg ORAL tablet Take 1 tablet by mouth every 6 hours as needed. Problem List As Of Date 07/04/2022 Noted Resolved Nuclear senile cataract of right eye [H25.11] 08/22/2018 Anxiety [F41.9] 08/22/2018 RLS (restless legs syndrome) [G25.81] 08/22/2018 Obesity (BMI 30-39.9) [E66.9] 08/22/2018 Former smoker [Z87.891] 08/22/2018 Encounter Status:Closed by AMBIKA BUNDY on 07/04/22 [facility] ANES Kaylin 08-27-2018 ANES POST HNO ID: [id number] Author: Jerri Murphy Service: Anesthesiology Author Type: Anesthesiologist Type: Anesthesia PostOp Filed: 08/27/2018 10:03 AM Note Text: POST ANESTHESIA EVALUATION NOTE SERVICE DATE: 08/27/2018 SERVICE TIME: 899 : 1960 Vitals: 08/27/18 0655 08/27/18 0819 08/27/18 0829 Temp: 36.7 ?C (98.1 ?F) 36.6 ?C (97.9 ?F) 36.6 ?C (97.9 ?F) 08/27/18 0819 08/27/18 0829 08/27/18 0830 08/27/18 0840 BP: 130/74 130/74 133/83 121/67 08/27/18 0819 08/27/18 0829 08/27/18 0830 08/27/18 0840 Pulse: 95 95 90 89 08/27/18 0819 08/27/18 0829 08/27/18 0830 08/27/18 0840 Resp: 18 18 16 18 08/27/18 0819 08/27/18 0829 08/27/18 0830 08/27/18 0840 SpO2: 97% 97% 96% 96% Validated Vital Signs: Yes POST ANES STATUS: No apparent anesthetic complications. The patient is appropriately hydrated with stable respiratory and cardiovascular status. Patient has safe and adequate airway control. The patient has appropriate pain relief and no significant post operative nausea or vomiting. The patient has achieved baseline mental status. Intra-Operative Events: No Significant Anesthesia Events Further assessment by Anesthesia Service: None Other Remarks: SIGNATURE: Jerri Murphy MD PATIENT NAME: Gregor Davalos DATE: August 27, 2018 TIME: 10:02 AM PAGER/CONTACT #: [facility] ANES PREOPon 08-27-2018 ANES PREOP HNO ID: [id number] Author: Jerri Murphy Service: Anesthesiology Author Type: Anesthesiologist Type: Anesthesia PreOp Filed: 08/27/2018 7:39 AM Note Text: REGIONAL ANESTHESIOLOGY PREOPERATIVE ASSESSMENT Surgeon(s): Chris Gardner Procedure(s) (LRB): PHACOEMULSIFICATION CATARACT IMPLANT INTRAOCULAR LENS (Right) Vitals: 08/27/18654 BP: 145/85 Pulse: 85 Resp: 16 Temp: 36.7 ?C (98.1 ?F) TempSrc: Temporal SpO2: 96% ACTIVE PROBLEM LIST Nuclear Senile Cataract of Right Eye Anxiety Rls (Restless Legs Syndrome) Obesity (Bmi 30-39.9) Former Smoker PAST MEDICAL HISTORY Diagnosis Date - History of cellulitis 2018 RLE s/p vein ablation ( [facility]) - NEGATIVE MEDICAL HISTORY PAST SURGICAL HISTORY Procedure Laterality Date - EXTRACTION, ERUPTED TOOTH - NONE 08/20/2009 No family history on file. Social History: Social History Tobacco Use - Smoking status: Former Smoker Packs/day: 1.00 Years: 13.00 Pack years: 13.00 Types: Cigarettes Last attempt to quit: 02/23/2013 Years since quittin.5 - Smokeless tobacco: Never Used Substance Use Topics - Alcohol use: No Comment: remote - Drug use: Never No current facility-administered medications on file prior to encounter. Current Outpatient Medications on File Prior to Encounter: chlorzoxazone (LORZONE) 375 mg tab Take 1 tablet by mouth three times daily as needed. escitalopram oxalate (LEXAPRO) 10 mg tablet Take 1 tablet by mouth once daily. pramipexole (MIRAPEX) 0.5 mg tablet Take two (2) tablets by mouth daily at bedtime fluticasone (FLONASE) 50 mcg/actuation nasal spray Use 2 Sprays in each nostril daily at bedtime. Use as directed. ibuprofen (MOTRIN) 600 mg ORAL tablet Take 1 tablet by mouth every 6 hours as needed. Current Facility-Administered Medications Medication Dose Route Frequency Provider Last Rate Last Dose - lactated ringers infusion 30 mL/hr INTRAVENOUS CONTINUOUS Chris Gardner - moxifloxacin 0.5 mg/0.1 mL 0.1 mL intraocular injection (VIGAMOX) 0.1 mL RIGHT EYE As Directed Chris Gardner - PHENYLephrine syringe 1.5% (15 mg/mL) (JAMISON-SYNEPHRINE) 2 mL RIGHT EYE ONCE Chris Gardner Allergies: ALLERGIES No Known Allergies REVIEW OF SYSTEMS: As stated in Active Problem List/ Past Medical History Sodium 138 01/15/2013 Glucose 87 01/15/2013 Potassium 3.7 01/15/2013 Creatinine 1.00 01/15/2013 ANESTHESIOLOGY REVIEW: Airway Assessment: MP 2; Neck ROM: Full ROM without neurologic symptoms; Airway Evaluation: No significant abnormalities Symptoms of Sleep Apnea: N/A Intubation History: No previous history of difficult intubation Dentition: Teeth intact ADVERSE ANESTHESIA EVENT: No history of adverse event FAMILY HIISTORY OF ANESTHESIA: No known issues Blood Products: Not anticipated for this procedure Other Medical Problems: None Additional Physical Exam: Lungs: Lungs clear to auscultation. Good diaphragmatic excursion. Cardiac: normal S1 and S2; no rubs, no murmurs, and no gallops Additional pertinent findings: N/A I have interviewed and examined the patient. I have reviewed the medical record and/or the pre-anesthesia evaluation, pertinent labs, and test results. Significant changes in the patient's condition since the History and Physical, not otherwise documented in primary service progress notes: No Anesthetic risks, benefits, alternatives, personnel and consent discussed. Yes ASA 2 NPO> 8 HOURS SOLIDS AND >2 HOURS CLEARS PLAN: MAC This contains updated information obtained within 48 hours of Surgery/Procedure. SIGNATURE: Jerri Murphy MD PATIENT NAME: Gregor Davalos DATE: August 27, 2018 TIME: 7:39 AM PAGER/CONTACT #: [facility] OPERATIVE NOon 08-27-2018 OPERATIVE NO HNO ID: [id number] Author: Chris Gardner Service: ? Author Type: Physician Type: Operative Report Filed: 08/27/2018 8:18 AM Note Text: OPERATIVE/PROCEDURE REPORT LOG ID: [id number] Surgery/Procedure Date: 08/27/2018 Incision/Procedure Start Time: 8:01 AM Incision Close/Procedure End Time: 8:16 AM Surgeon(s)/Proceduralist (s) and Dicer Operator(s): Surgeon(s) and Role: * Chris Gardner - Primary No Additional Staff Procedure: Phacoemulsification with posterior chamber intraocular lens right eye. Anesthesia: Local stand-by Procedure Details: Patient entered the operating room in good condition. After establishing that adequate anesthesia had been obtained, the patient was prepped and draped in sterile fashion for intraocular surgery of the Right eye. A wire lid speculum was placed in the eye and a paracentesis was made. The anterior chamber was deepened using viscoelastic. The anterior chamber was entered again using a amy blade. A continuous tear capsulotomy was performed. Hydrodissection was then performed. The lens nucleus was rotated. Phacoemulsification was carried out in the usual fashion without complications. Cortical clean-up was then performed using the automated I/A. The capsular bag was polished. The capsular bag was then deepened using viscoelastic. The posterior chamber intraocular lens was then placed in the capsular bag and rotated into position without complication. Residual viscoelastic was removed. The anterior chamber was deepened using BSS. A watertight wound was obtained. The wire lid speculum was removed. The eye was dressed with antibiotic ointment. A protective shield was placed over the eye. The patient left the operating room in good condition. N.B. There was a decreas in zonular support; probably truma previously. Estimated Blood Loss: None Implantable Devices: Posterior Chamber IOL Complications: None Preoperative Diagnosis: Cataract, right eye with decreased vision resulting in difficulty performing ADL Postop Diagnosis: same I performed the entire procedure. SIGNATURE: Chris Gardner MD PATIENT NAME: Gregor Davalos DATE: August 27, 2018 TIME: 8:17 AM PAGER/CONTACT #: [facility] NURSING PROGon 08-23-2018 Protein mass conc HNO ID: [id number] Author: Tatiana BarakatRnKyle Tapia RN Service: Neurosurgery Author Type: Registered Nurse Type: Nursing Progress Note Filed: 08/23/2018 8:39 AM Note Text: PACC Nurse Progress Note History AND Physical: PACC Visit Date: 08-22-18 Original HANDP Date: N/A ED visit Date: N/A Outside HANDP Scanned Date: N/A Labs Within Last 6 Months: N/A Imaging Within Last 12 Months: N/A Cardiac Testing: N/A BMI Percentile (PEDS): N/A Risk Assessment: N/A Anesthesia Review: N/A Narrative: N/A Pre-op Considerations: N/A Chart Check: COMPLETED Tatiana Tapia RN August 23, 2018 8:39 AM [facility] HISTORY PHYSICALon 9 HISTORY PHYSICAL HNO ID: [id number] Author: Kary Rhodes Service: ? Author Type: Nurse Practitioner Type: HANDP Filed: 08/22/2018 1:45 PM Note Text: HISTORY AND PHYSICAL EXAMINATION SERVICE DATE: 08/22/2018 SERVICE TIME: 1:20 PM PRIMARY CARE PHYSICIAN: Kinza Topete MD REASON FOR VISIT: Gregor Davalos is a 57 year old male who is scheduled for PHACOEMULSIFICATION CATARACT IMPLANT INTRAOCULAR LENS at the request of Dr. Chris Gardner for evaluation of medical conditions. Subjective CHIEF COMPLAINT: cataract HPI: Pt. presenting with history of right cataract for over 1 year that has progressed causing decrease visual acuity affecting reading, watching television, driving and activities of daily living affecting his quality of life. Pt. wears corrective lenses; denies any eye pain or headaches. Pt. is recommended for surgery. PAST MEDICAL HISTORY Diagnosis Date - History of cellulitis 2018 RLE s/p vein ablation ( [facility]) - NEGATIVE MEDICAL HISTORY PAST SURGICAL HISTORY Procedure Laterality Date - EXTRACTION, ERUPTED TOOTH - NONE 08/20/2009 History reviewed. No pertinent family history. SOCIAL HISTORY: Social History Socioeconomic History Marital status: Single Spouse name: Not on file Number of children: Not on file Years of education: Not on file Highest education level: Not on file Social Needs Financial resource strain: Not on file Food insecurity - worry: Not on file Food insecurity - inability: Not on file Transportation needs - medical: Not on file Transportation needs - non-medical: Not on file Occupational History Not on file Tobacco Use Smoking status: Former Smoker Packs/day: 1.00 Years: 13.00 Pack years: 13 Types: Cigarettes Quit date: 02/23/2013 Years since quittin.4 Smokeless tobacco: Never Used Substance and Sexual Activity Alcohol use: No Comment: remote Drug use: Never Sexual activity: Not on file Other Topics Concerns: Not on file Social History Narrative Not on file MEDICATIONS: Prior to Admission medications as of 08/22/18 1334 Medication Sig Last Dose Taking chlorzoxazone (LORZONE) 375 mg tab Take 1 tablet by mouth three times daily as needed. Taking Yes escitalopram oxalate (LEXAPRO) 10 mg tablet Take 1 tablet by mouth once daily. Taking Yes pramipexole (MIRAPEX) 0.5 mg tablet Take two (2) tablets by mouth daily at bedtime Taking Yes fluticasone (FLONASE) 50 mcg/actuation nasal spray Use 2 Sprays in each nostril daily at bedtime. Use as directed. Taking Yes ibuprofen (MOTRIN) 600 mg ORAL tablet Take 1 tablet by mouth every 6 hours as needed. Taking Yes No medication comments found. CURRENT ALLERGIES: ALLERGIES No Known Allergies REVIEW OF SYSTEMS: PAIN ASSESSMENT: General: No weight loss, malaise or fevers. Neuro: No history of TIA's, stroke, [employer] tumor, impaired sensorium, hemiplegia, paraplegia or quadraplegia. No neurological symptoms or problems. Respiratory: No history of current cough or dyspnea, or pneumonia in the past 6 weeks. No history of respiratory/pulmonary symptoms or problems. Cardiovascular: No history of HTN requiring medication, no history of angina, CHF, MS, cardiac surgery or stents. Denies rest pain, gangrene or revascularization/amputa tion for PVD. No history of cardiovascular symptoms or problems. GI: No history of GI symptoms or problems. No history of esophageal varices, recent ascites, or ETOH greater than 2 drinks per day. : No history of dysuria, frequency or incontinence,, stones or chronic kidney disease Endocrine: No history of diabetes. Has not taken steroids within the past 30 days. No history of endocrinological symptoms or problems. Hematology: No history of bleeding or clotting disorder. Pt is not taking anti-coagulation or platelet medications. No history of hematological symptoms or problems. Oncology: No history of CA metastasis, chemo within 30 days, or radiotherapy within 90 days. Has not lost 10% of body wt in 6 months. No history of oncological symptoms or problems. Psych: Anxiety, Depression Musculoskeletal: Back pain Skin: Negative for lesions, rash and itching. Objective PHYSICAL EXAM: VITALS: BP 140/80 Pulse 88 Temp (Src) 97.7 (Temporal Artery) Resp 16 Ht 6' 4 (1.93m) Wt 290 lb (131.5kg) SpO2 96% BMI 35.31 kg/(m2). General: Alert and oriented, No acute distress, Healthy appearance but Obese Skin: Normal color, no rash, no lesions. HEENT: EOM I, pupils equal, round and reactive. Oropharynx clear. Neck Supple Cardiovascular: Normal S1 AND S2, no rubs, murmurs or gallops. No JVD. Pulse regular. Lungs: Normal breath sounds, no wheezes or crackles., No chest deformities or chest wall tenderness. Abdomen: not examined Extremities: No deformity, no edema or tenderness, no joint swelling or clubbing. Neurological: Normal cognition and motor skills. Gait normal. No weakness or sensory deficit. Pulses: Carotid and radial pulses normal +2. Diagnostic tests reviewed for today's visit: 2018 labs noted in Care Everywhere ( [facility]) 05/03/2003 ECHO: COMMENTS AND PERTINENT FINDINGS: 1. ? M-mode, two-dimensional Doppler, and color flow studies were performed. 2. ? Aortic root end-diastolic dimension was normal. Aortic valvular systolic cusp separation was normal. There was a normal tricusp aortic valve present. There was no evidence of aortic stenosis or aortic insufficiency seen. 3. ? Left ventricular end-diastolic dimension was at upper limits of normal. There was normal global contraction of the left ventricle seen. Ejection fraction was measured at 70% by M-mode method and 68% by two-dimensional method. There was no regional wall motion abnormality. There was no suggestion of diastolic dysfunction noted. There was a normal E to A ratio noted on left ventricular inflow pattern. There was no regional motion abnormality noted. 4. ? Normal mitral valve movement. There was no evidence of mitral stenosis. Trivial mitral regurgitation was noted. 5. ? Tricuspid valve appeared to move normally. There was no evidence of tricuspid stenosis. Trivial tricuspid insufficiency was noted. 6. ? The pulmonic valve was not visualized. There was no evidence of pulmonic stenosis. Trivial pulmonic insufficiency was noted. 7. ? Estimated RV systolic pressure within normal limits at 28 mmHg. 8. ? Normal left atrial, right atrial, and right ventricular dimensions with normal contraction of the right ventricle seen. 9. ? No evidence of pericardial effusion noted. Dictated by: ?Lucas AVALOS M.D./durga D: ?05/03/2003 23:17 Assessment/Plan Anxiety Assessment: mood stable Managed with med RLS (restless legs syndrome) Assessment: Mirapex at bedtime Obesity (BMI 30-39.9) Assessment: Body mass index is 35.3 kg/m?. Weight reduction encouraged. Former smoker Assessment: 13 pack years METS: Climb a flight of stairs or walk up a hill (5.50 METs) Patient denies any chest pain or undue shortness of breath with the above physical activity. ASA Class: 3 ANESTHESIA FINDINGS: Intubation History: No prior intubation Significant Anesthesia Considerations: None. No known family history of adverse anesthetic events. Airway Exam: General: Normal appearance Mallampati Score is CLASS III ULBT: Class II - Lower incisors can bite the upper lip below the ravi line Neck: Short thick neck, FROM. Distance from hyoid to mentum during neck extension is at least 3 finger breaths Mouth: Normal tongue size and Mouth opening greater than 2 finger breaths Dentition: Intact and Caps/crowns Airway History: No abnormal airway history STOP BANG Score: Criteria: BMI > 35 Age over 50 (57 year old) Neck circumference > 15.75 inches Male gender Score = 4 PLAN This patient is optimally prepared for surgery. CONSULTS: Patient does not require consults for optimization at this time. The Following Tests/Procedures Have Been Initiated: Labs not indicated per PACC protocol, EKG not indicated per PACC protocol Cataract Protocol Planned Anesthetic: MAC Instructions Given to Patient: Patient given verbal and written preop instructions and voices comprehension and compliance. SIGNATURE: Kary Rhodes APRN.CNP PATIENT NAME: Gregor Davalos DATE: August 22, 2018 TIME: 1:20 PM PAGER/CONTACT #: [facility] 08-16-2018 [facility] Patient:Gregor Davalos MRN: Height:6' 4 (1.93 m) Weight:290 lb (131.543 kg) Outpatient Medications as of 08/27/18: chlorzoxazone (LORZONE) 375 mg tab escitalopram oxalate (LEXAPRO) 10 mg tablet pramipexole (MIRAPEX) 0.5 mg tablet fluticasone (FLONASE) 50 mcg/actuation nasal spray ibuprofen (MOTRIN) 600 mg ORAL tablet Admission/Clinic Administered Medications as of 08/27/18: lactated ringers infusion moxifloxacin 0.5 mg/0.1 mL 0.1 mL intraocular injection (VIGAMOX) PHENYLephrine syringe 1.5% (15 mg/mL) (JAMISON-SYNEPHRINE) Problem List: Nuclear senile cataract of right eye [H25.11] Anxiety [F41.9] RLS (restless legs syndrome) [G25.81] Obesity (BMI 30-39.9) [E66.9] Former smoker [Z87.891] Allergies: No Known Allergies Date Verified:08/27/18 Lab Values No results within the last 30 days for the following basenames: K,HCT No progress notes entered within the past 30 days [facility] VC EXT VENOUS RT LIMITEDon 1 04-29-2017 VC EXT VENOUS RT LIMITED [address] [place] [address] Patient: GREGOR DAVALOS. Exam Date: 02/26/2018 : 1960 Gender:M Ordering : DR CELESTE CAO Admission #: [id number] Family : Order #: [id number] CLICK HERE TO VIEW EXAM RADIOLOGY REPORT PROCEDURE: VEIN CENTER EXTREMITY VENOUS RIGHT LIMITED COMPARISON: VC EXT VENOUS RT LIMITED, 01/25/2018. INDICATIONS: Phlebitis of superficial veins of lower extremity TECHNIQUE: Lower extremity amin scale and Duplex Doppler evaluation of the deep venous system from the inguinal ligament through the calf veins. FINDINGS: REGION: Right lower extremity. THROMBI: Occlusive GSV prox to distal lower leg, Occlusive SSV distal to extension of thigh. Varithena induced thrombus visualized mid to distal medial lower leg and lateral distal to mid lower leg. COMPRESSIBILITY: Non-compressible segments. FLOW: Areas of absent flow corresponding to thrombus. *Exam performed in accordance with [facility] practice guidelines- Peripheral venous ultrasound, June 05, 2009. CONCLUSION: 1. Successful occlusion of incompetent right leg varicose veins following microfoam ablation Dictated by: Celeste Cao M.D. on 02/26/2018 at 16:22 Approved by: Celeste Cao M.D. on 02/26/2018 at 16:30 Normal [facility] VEIN CENTER CONSULTATIONo n 02-26-2018 VEIN CENTER CONSULTATION [address] [place] [id number] Patient: GREGOR DAVALOS Exam Date: 02/26/2018 : 1960 Gender:M Ordering : DR CELESTE CAO Admission #: [id number] Family : Order #: [id number] CLICK HERE TO VIEW EXAM RADIOLOGY REPORT PROCEDURE: VEIN CENTER CONSULTATION VEIN CENTER - OFFICE VISIT FOLLOW UP COMPARISON: VEIN CENTER CONSULTATION, 02/19/2018. PROGRESS NOTES: The patient reports minimal tenderness in the right leg following micro foam chemical ablation which has resolved. The area of redness and micro ulceration along the anterior distal right leg has scabbed over with 3 small scabs measuring 1-3 mm in size. The patient did start clindamycin prescribed by his infectious disease physician. The patient has followed our recommendations to walk 20-30 minutes once or twice per day since the procedure as well as wear his compression stocking. The patient reports these had significant improvement in leg discomfort, tiredness and achiness following our procedures and is able to walk all day without his previous symptoms. Physical exam demonstrates persistent mild bilateral subcutaneous edema below the level of the knees. No areas of active ulceration are demonstrated. The patient was given a prescription for clindamycin 300 milligrams, 30 tablets to be taking Q 8 hours for 10 days for suspected early right leg cellulitis. I discussed the use of 30-40 and 40-50 mm compression stockings. The patient has ordered 30- 40 mm stockings. The patient was asked to return as needed. IMPRESSION: 1. Successful occlusion of incompetent right leg varicose vein 2. Persistent bilateral subcutaneous edema, likely multifactorial and not related to venous insufficiency 3. Significant interval improvement in initial presenting symptoms PLAN: 1. Long-term use of bilateral thigh-high compression stockings 2. Follow-up as needed Nurse notes, history and physical were reviewed and confirmed, see attached forms. The nurse was present throughout the physical exam and consultation Dictated by: Celeste Cao M.D. on 02/26/2018 at 16:31 Approved by: Celeste Cao M.D. on 02/26/2018 at 16:36 [facility] VC INJ FOAM SCLERO W US MLTI on 02-22-2018 VC INJ FOAM SCLERO W US MLTI [address] [place] [address] Patient: GREGOR DAVALOS Exam Date: 02/22/2018 : 1960 Gender:M Ordering : DR CELESTE CAO Admission #: [id number] Family : Order #: [id number] CLICK HERE TO VIEW EXAM RADIOLOGY REPORT PROCEDURE: VEIN CENTER INJECTION FOAM SCLEROSING SOLUTION WITH ULTRASOUND MULTIPLE VEINS Pre-operative Diagnosis: CEAP class C4a venous insufficiency with pain, tenderness, edema and incompetent right branch saphenous veins, chronic venous insufficiency right leg secondary to venous incompetence Post-operative Diagnosis: CEAP class C4a venous insufficiency with pain, tenderness, edema and incompetent right branch saphenous veins, chronic venous insufficiency right leg secondary to venous incompetence Procedure Performed: 1. Ultrasound-guided microfoam chemical ablation with Varithena(r) 2. Intraoperative ultrasound guidance Physician: Celeste Cao M.D. Anesthesia: None Indications for Procedure: 57 year old male. Six-month history of bilateral leg pain, subcutaneous edema and multiple episodes of cellulitis requiring hospitalization. The patient is failed conservative medical therapy including medical compression stockings, analgesics, exercised and a oral and IV antibiotics. Multiple prior procedures including intravenous laser ablation and micro foam chemical. Multiple incompetent varicosities of the right leg. Duplex scan showed reflux and enlarged diameters up to 5 mm. The patient underwent informed consent including management options where the complications of infection, bleeding, pain, and skin injury were discussed. Particular attention was spent discussing thrombus extension and deep vein thrombosis as well as the possibility of pulmonary embolus and treatment with oral or injectable blood thinners. Procedure: The patient walked to the procedure room. All applicable staff donned appropriate apparel. A procedure timeout was performed to confirm correct patient, correct extremity, correct procedure, and correct room set-up including presence of all applicable supplies, devices, and drugs. A duplex ultrasound, performed by myself confirmed the location and incompetence of marked on the skin together with the dilated tributaries. The extent of treatment of the vein and the associated varicosities was determined through ultrasound mapping. The patient was placed on the operating room table. The limb was prepped. The skin was punctured with a butterfly needle through the skin with the venous access needle and advanced under ultrasound guidance. The target limb was positioned at 45 degrees of elevation in relation to the torso after each injection. The Varithena(r) canister was previously activated and the canister purged as required in the instructions for use. The following injections were made: 7 mL aliquot of Varithena(r) was drawn into a sterile syringe. Injection into a 5 mm varicose vein medial distal lower leg. Ultrasound demonstrated anterograde flow to the knee, retrograde flow to the ankle 5 mL aliquot of Varithena(r) was drawn into a sterile syringe. Injection into a 5 mm varicose vein medial proximal lower leg. Ultrasound demonstrated anterograde flow to the mid thigh, retrograde flow to the distal lower leg 6 mL aliquot of Varithena(r) was drawn into a sterile syringe. Injection into a 6 mm varicose vein posterior lateral distal lower leg. Ultrasound demonstrated anterograde flow to the knee, retrograde flow to the ankle A total volume of 18 mL of Varithena(r) was used. During administration of Varithena(r), the patient was asked to dorsiflex the ankle to limit flow of Varithena(r) into perforating veins. Once appropriate spasm had been confirmed in the treated veins, light pressure was applied over the puncture site for hemostasis The common femoral and deep superficial veins were then evaluated for flow and compressibility prior to dressing placement. The lower extremity was kept elevated at 45 degrees above the horizontal and cording material was applied over the saphenous segments and tributaries to allow for eccentric compression over the target vessels including the targeted saphenous vein(s). A multilayer dressing was applied consisting of foam pads, coban and thigh-high 20-30 mm Hg compression elastic support hose were placed on the patient. The leg was lowered only after compression had been applied and the patient was immediately ambulatory. The patient ambulated 10 minutes under supervision and was without apparent concerns at time of release Post-care instructions include advising patient to keep post-treatment bandages in place and dry for 48 hours, avoid extended periods of inactivity, avoid heavy exercise for one week, wear compression stockings on the treated leg continuously for two weeks, to walk daily for 10 minutes over the next month. The patient was instructed to take an anti-inflammatory medicine as needed and to follow up for color duplex scan of the GSV, the treated superficial varices, the adjacent deep veins, and additional treatment within 7 days. PERSONNEL: Benigno Campos RN Dictated by: Celeste Cao M.D. on 02/22/2018 at 08:54 Approved by: Celeste Cao M.D. on 02/22/2018 at 09:00 [facility] VC EXT VENOUS LT LIMITEDon 1 04-22-2017 VC EXT VENOUS LT LIMITED [address] [place] [address] Patient: GREGOR DAVALOS Exam Date: 02/19/2018 : 1960 Gender:M Ordering : DR CELESTE CAO Admission #: [id number] Family : Order #: [id number] CLICK HERE TO VIEW EXAM RADIOLOGY REPORT PROCEDURE: VEIN CENTER EXTREMITY VENOUS LEFT LIMITED COMPARISON: VC EXT VENOUS LT LIMITED, 02/08/2018. INDICATIONS: Phlebitis of superficial veins of lower extremity TECHNIQUE: Lower extremity amin scale and Duplex Doppler evaluation of the deep venous system from the inguinal ligament through the calf veins. FINDINGS: REGION: Left lower extremity. THROMBI: HIT visualized 1.8cm from SFJ extending down to the distal GSV. Varithena induced thrombus visualized mid medial thigh, mid medial calf extending down to ankle. COMPRESSIBILITY: Non-compressible segments corresponding to thrombus FLOW: Areas of absent flow. OTHER: Patient varicose veins visualized on the mid lateral lower leg measuring 3 mm with 0.5 seconds of reflux. *Exam performed in accordance with [facility] practice guidelines- Peripheral venous ultrasound, June 05, 2009. CONCLUSION: 1. Successful occlusion of chemically ablated left leg incompetent varicose veins Dictated by: Celeste Cao M.D. on 02/19/2018 at 16:41 Approved by: Celeste Cao M.D. on 02/19/2018 at 16:48 Normal [facility] VEIN CENTER CONSULTATIONo n 02-19-2018 VEIN CENTER CONSULTATION [address] [place] [address] Patient: GREGOR DAVALOS Exam Date: 02/19/2018 : 1960 Gender:M Ordering : DR CELESTE CAO Admission #: [id number] Family : Order #: [id number] CLICK HERE TO VIEW EXAM RADIOLOGY REPORT PROCEDURE: VEIN CENTER CONSULTATION VEIN CENTER - OFFICE VISIT FOLLOW UP COMPARISON: VEIN CENTER CONSULTATION, 02/08/2018. PROGRESS NOTES: The patient reports mild tenderness in the left leg following micro foam chemical ablation. The patient has tenderness has significantly improved. The patient used ibuprofen for pain relief, he has not taken ibuprofen for the past 2 days. The patient reports interval improvement in the numbness along with bilateral witt. The patient has followed our recommendations to walk 20-30 minutes once or twice per day since the procedure as well as wear his compression stocking. Physical exam demonstrates no focal areas of erythema, warmth or ulceration. No residual varicose veins are clearly observed by physical exam. Review of the ultrasound performed the same day demonstrates occlusive thrombus extending throughout the treated incompetent left leg varicose veins, see separate report, consistent with a successful ablation. No thrombus extending into or beyond the saphenofemoral junction. Persistent dilated incompetent varicose veins are identified, most significant along the medial distal right lower leg with a large herbologist communicating with the small saphenous vein. Incompetent left medial lower leg varicose vein. The patient expressed a desire to proceed with treatment of incompetent right leg varicose veins. The patient was informed that treatment was a process and would require approximately 1 procedures/sessions. IMPRESSION: 1. Successful ablation of incompetent left leg varicose veins 2. Persistent bilateral incompetent varicose veins PLAN: 1. Micro foam chemical ablation right leg incompetent varicose veins Nurse notes, history and physical were reviewed and confirmed, see attached forms. The nurse was present throughout the physical exam and consultation Dictated by: Celeste Cao M.D. on 02/19/2018 at 16:29 Approved by: Celeste Cao M.D. on 02/19/2018 at 16:32 [facility] VC INJ FOAM SCLERO W US MLTI on 02-13-2018 VC INJ FOAM SCLERO W US MLTI [address] [place] [address] Patient: GREGOR DAVALOS Exam Date: 02/13/2018 : 1960 Gender:M Ordering : DR CELESTE CAO Admission #: [id number] Family : Order #: [id number] CLICK HERE TO VIEW EXAM RADIOLOGY REPORT PROCEDURE: VEIN CENTER INJECTION FOAM SCLEROSING SOLUTION WITH ULTRASOUND MULTIPLE VEINS Pre-operative Diagnosis: CEAP class C4a venous insufficiency with pain, tenderness, edema and incompetent left branch saphenous varicose veins, chronic venous insufficiency left leg secondary to venous incompetence Post-operative Diagnosis: CEAP class C4a venous insufficiency with pain, tenderness, edema and incompetent left branch saphenous varicose veins, chronic venous insufficiency left leg secondary to venous incompetence Procedure Performed: 1. Ultrasound-guided microfoam chemical ablation with Varithena(r) 2. Intraoperative ultrasound guidance Physician: Celeste Cao M.D. Anesthesia: None Indications for Procedure: 57 year old male. Symptoms including bilateral leg pain, subcutaneous edema and cellulitis for 6 months despite conservative medical therapy including medical compression stockings, exercise and analgesics. Prior procedures include intravenous laser ablation of the great saphenous vein Multiple incompetent varicosities of the left leg. Duplex scan showed reflux and enlarged diameters up to 5 mm. The patient underwent informed consent including management options where the complications of infection, bleeding, pain, and skin injury were discussed. Particular attention was spent discussing thrombus extension and deep vein thrombosis as well as the possibility of pulmonary embolus and treatment with oral or injectable blood thinners. Procedure: The patient walked to the procedure room. All applicable staff donned appropriate apparel. A procedure timeout was performed to confirm correct patient, correct extremity, correct procedure, and correct room set-up including presence of all applicable supplies, devices, and drugs. A duplex ultrasound, performed by myself confirmed the location and incompetence of left leg incompetent varicose veins and their course marked on the skin together with the dilated tributaries. The extent of treatment of the vein and the associated varicosities was determined through ultrasound mapping. The patient was placed on the operating room table. The limb was prepped. The skin was punctured with a butterfly needle through the skin with the venous access needle and advanced under ultrasound guidance. The target limb was positioned at 45 degrees of elevation in relation to the torso. The Varithena(r) canister was previously activated and the canister purged as required in the instructions for use. The following injections were made: 8 mL aliquot of Varithena(r) was drawn into a sterile syringe. Injection into a 5 mm varicose vein distal medial lower leg. Anterograde flow to the level of the knee, retrograde flow to the ankle. 6 mL aliquot of Varithena(r) was drawn into a sterile syringe. Injection into a 5 mm varicose vein mid anterior lower leg. Anterograde flow to the level of the knee, retrograde flow to the ankle. 3 mL aliquot of Varithena(r) was drawn into a sterile syringe. Injection into a 5 mm varicose vein mid medial thigh. Anterograde flow to the level of the upper thigh, retrograde flow to the knee. A total volume of 17 mL of Varithena(r) was used. During administration of Varithena(r), the patient was asked to dorsiflex the ankle to limit flow of Varithena(r) into perforating veins. Once appropriate spasm had been confirmed in the treated veins, light pressure was applied over the puncture site for hemostasis The common femoral and deep superficial veins were then evaluated for flow and compressibility prior to dressing placement. The lower extremity was kept elevated at 45 degrees above the horizontal and cording material was applied over the saphenous segments and tributaries to allow for eccentric compression over the target vessels including the targeted saphenous vein(s). A multilayer dressing was applied consisting of foam pads, coban and thigh-high 20-30 mm Hg compression elastic support hose were placed on the patient. The leg was lowered only after compression had been applied and the patient was immediately ambulatory. The patient ambulated 10 minutes under supervision and was without apparent concerns at time of release Post-care instructions include advising patient to keep post-treatment bandages in place and dry for 48 hours, avoid extended periods of inactivity, avoid heavy exercise for one week, wear compression stockings on the treated leg continuously for two weeks, to walk daily for 10 minutes over the next month. The patient was instructed to take an anti-inflammatory medicine as needed and to follow up for color duplex scan of the GSV, the treated superficial varices, the adjacent deep veins, and additional treatment within 7 days. PERSONNEL: Benigno Campos RN Dictated by: Celeste Cao M.D. on 02/13/2018 at 12:03 Approved by: Celeste Cao M.D. on 02/13/2018 at 12:06 Normal [facility] VC EXT VENOUS LT LIMITEDon 1 04-10-2017 VC EXT VENOUS LT LIMITED [address] [place] [address] Patient: GREGOR DAVALOS Exam Date: 02/08/2018 : 1960 Gender:M Ordering : DR CELESTE CAO Admission #: [id number] Family : Order #: [id number] CLICK HERE TO VIEW EXAM RADIOLOGY REPORT PROCEDURE: VEIN CENTER EXTREMITY VENOUS LEFT LIMITED COMPARISON: None. INDICATIONS: Phlebitis and thrombophlebitis of lower extremity TECHNIQUE: Lower extremity amin scale and Duplex Doppler evaluation of the deep venous system from the inguinal ligament through the calf veins. FINDINGS: REGION: Left lower extremity. THROMBI: Heat induced thrombus in the left great saphenous vein, 2.3 cm from the SFJ, extending down to the distal ankle. COMPRESSIBILITY: Non-compressible segments. FLOW: Areas of no flow. OTHER: Patent varicose veins visualized on the mid medial aspect of the lower leg measuring 3.5 mm with 0.9 seconds of reflux. 4.4 mm herbologist visualized extending off of the PTV with 2.9 seconds of reflux. Hypoechoic area visualized adjacent to the lateral aspect of the knee measuring 4.3 x 2.8 x 0.8 cm, possibly a popliteal cyst. *Exam performed in accordance with [facility] practice guidelines- Peripheral venous ultrasound, June 05, 2009. CONCLUSION: 1. Successful occlusion of the left great saphenous vein 2. Residual incompetent left leg varicose veins measuring up to 4.4 mm Dictated by: Celeste Cao M.D. on 02/08/2018 at 16:40 Approved by: Celeste Cao M.D. on 02/08/2018 at 16:41 Normal [facility] VEIN CENTER CONSULTATIONo n 02-08-2018 VEIN CENTER CONSULTATION [address] [place] [address] Patient: GREGOR DAVALOS Exam Date: 02/08/2018 : 1960 Gender:M Ordering : DR CELESTE CAO Admission #: [id number] Family : Order #: [id number] CLICK HERE TO VIEW EXAM RADIOLOGY REPORT PROCEDURE: VEIN CENTER CONSULTATION VEIN CENTER - OFFICE VISIT FOLLOW UP COMPARISON: VEIN CENTER CONSULTATION, 01/25/2018. PROGRESS NOTES: The patient reports mild tenderness of the left leg related to the intravenous laser ablation. The pain has improved and was well controlled with oral analgesics. The patient has followed our recommendations to walk 20-30 minutes once or twice per day since the procedure as well as wear his compression stocking. Physical exam demonstrates no significant erythema, warmth or ulceration. The patient does have some mild right leg swelling below the knee, improved from his initial exam. Review of the ultrasound performed the same day demonstrates occlusive thrombus extending throughout the treated left great saphenous vein, see separate report, consistent with a successful ablation. No thrombus extending into or beyond the saphenofemoral junction. The patient expressed a desire to proceed with treatment of residual bilateral incompetent varicose veins. The patient was informed that treatment was a process and would require approximately 1 procedures/sessions per leg. IMPRESSION: 1. Successful ablation of the left great saphenous vein 2. Persistent incompetent bilateral varicose veins PLAN: 1. Bilateral micro foam chemical ablation, left before right Nurse notes, history and physical were reviewed and confirmed, see attached forms. The nurse was present throughout the physical exam and consultation Dictated by: Celeste Cao M.D. on 02/08/2018 at 16:42 Approved by: Celeste Cao M.D. on 02/08/2018 at 16:44 Normal [facility] VC ENDOVENOUS ABL 1ST V LTon 01-28-2018 VC ENDOVENOUS ABL 1ST V LT [address] [place] [address] Patient: GREGOR DAVALOS Exam Date: 01/28/2018 : 1960 Gender:M Ordering : DR CELESTE CAO Admission #: [id number] Family : Order #: [id number] CLICK HERE TO VIEW EXAM RADIOLOGY REPORT PROCEDURE: VEIN CENTER ENDOVENOUS ABLATION FIRST VEIN LEFT COMPARISON: None. INDICATIONS: Pain co-occurrent and due to varicose veins of bilateral legs OPERATIVE REPORT: The risks and benefits of the procedure had been previously discussed, and were rediscussed at length. Informed written consent was obtained. Benigno Campos and Pepe Castro assisted. Time out procedure was performed. The left lower extremity was prepared and draped in the usual sterile fashion to allow knee flexion in the sterile field. Duplex ultrasound probe was draped in a sterile cover, sterile transmission gel was used. Venous mapping was performed with the areas of dilation and large tributaries marked. The total length was 73 cm from the entry 6 cm above the medial malleolus to 3 cm below the saphenofemoral junction. The diameter of the greater saphenous vein ranged from 5-8 mm. A 30 gauge needle and 1% buffered lidocaine was used to anesthetize the entry site. A 4 mm incision was made with a scalpel and the saphenous vein was entered percutaneously under direct ultrasound guidance with a micropuncture set, a single stick was successful in gaining access. A micro-guide wire was inserted and the needle removed. A micro-set including a dilator was inserted over the microwire and the needle and dilator were removed. A 0.018 guide wire was inserted through the micro-set and threaded through the saphenous vein to the saphenofemoral junction. The dilator was removed and an introducer sheath was inserted over the wire until the end of the sheath entered the saphenofemoral junction. The dilator and wire were removed and the 600 micron fiber was introduced and placed and positioned so that it extended beyond the sheath and was 3 cm peripheral to the saphenofemoral femoral junction. Final position of the fiber was determined by ultrasound guidance and duplex imaging. Tumescent anesthetic was delivered by ultrasound guidance. 400 cc of fluid was delivered along the entire course of the saphenous vein. The solution consisted of 1000 cc of normal saline with 40 mL of 1% lidocaine and 20 mL of sodium bicarbonate. A final positioning check was made. The energy source was turned on by means of the foot pedal and the fiber and sheath were withdrawn. The total number of Joules delivered was 3330. The laser was active for 416 seconds under continuous pulse, average laser use of 8 J. Laser start time 08:38 am 01/28/2018. Laser stop time 08:50 am 01/28/2018. A duplex ultrasound revealed compressibility and flow at the saphenofemoral junction immediately after the procedure. Hemostasis at the access site was achieved. The skin incision of the saphenous vein was closed with a 4 x 4. A compression stocking was applied. Postop instructions were given. A follow up appointment was recommended and scheduled. The patient tolerated the procedure well and was discharged in good condition. CONCLUSION: 1. Technically successful endovenous laser ablation of the left great saphenous vein. Dictated by: Celeste aCo M.D. on 01/28/2018 at 08:54 Approved by: Celeste Cao M.D. on 01/28/2018 at 08:56 [facility] VC EXT VENOUS RT LIMITEDon 1 03-27-2017 VC EXT VENOUS RT LIMITED [address] [place] [id number] Patient: GREGOR DAVALOS Exam Date: 01/25/2018 : 1960 Gender:M Ordering : DR CELESTE CAO Admission #: [id number] Family : Order #: [id number] CLICK HERE TO VIEW EXAM RADIOLOGY REPORT PROCEDURE: VEIN CENTER EXTREMITY VENOUS RIGHT LIMITED COMPARISON: None. INDICATIONS: Phlebitis of superficial veins of right lower extremity post ablation of right GSV TECHNIQUE: Lower extremity amin scale and Duplex Doppler evaluation of the deep venous system from the inguinal ligament through the calf veins. FINDINGS: REGION: Right lower extremity. THROMBI: Occlusive thrombus visualized in the right GSV seen 2.1 cm away from the saphenofemoral junction. Occlusive thrombus visualized from proximal thigh GSV to distal calf GSV. COMPRESSIBILITY: Non-compressible segments. FLOW: Areas of no flow. OTHER: Negative for DVT. *Exam performed in accordance with [facility] practice guidelines- Peripheral venous ultrasound, June 05, 2009. CONCLUSION: 1. Successful post ablation occlusion of the right great saphenous vein Dictated by: Celeste Cao M.D. on 01/25/2018 at 17:24 Approved by: Celeste Cao M.D. on 01/25/2018 at 17:27 Normal [facility] VEIN CENTER CONSULTATIONo n 01-25-2018 VEIN CENTER CONSULTATION [address] [place] [address] Patient: GREGOR DAVALOS Exam Date: 01/25/2018 : 1960 Gender:M Ordering : DR CELESTE CAO Admission #: [id number] Family : Order #: [id number] CLICK HERE TO VIEW EXAM RADIOLOGY REPORT PROCEDURE: VEIN CENTER CONSULTATION VEIN CENTER - OFFICE VISIT FOLLOW UP COMPARISON: VEIN CENTER CONSULTATION, 01/03/2018. PROGRESS NOTES: The patient reports mild tenderness in the right thigh following the intravenous laser ablation for approximately 1-2 days, this has since resolved. The patient reports an area of partial numbness in the distal anterior leg measuring approximately 8 inches in length by 3 inches and width. The patient has followed our recommendations to walk 20-30 minutes once or twice per day since the procedure as well as wear his compression stocking. Physical exam demonstrates significant decrease in erythema of the lower leg in the area of the patient's prior cellulitis. Review of the ultrasound performed the same day demonstrates occlusive thrombus extending throughout the treated right great saphenous vein, see separate report, consistent with a successful ablation. No thrombus extending into or beyond the saphenofemoral junction. The patient expressed a desire to proceed with treatment of incompetent left great saphenous vein with intravenous laser ablation. IMPRESSION: 1. Successful ablation of the right great saphenous vein 2. Persistent incompetent left great saphenous vein PLAN: 1. Endovenous laser ablation of the left great saphenous vein Nurse notes, history and physical were reviewed and confirmed, see attached forms. The nurse was present throughout the physical exam and consultation Dictated by: Celeste Cao M.D. on 01/25/2018 at 17:18 Approved by: Celeste Cao M.D. on 01/25/2018 at 17:20 Normal [facility] VC ENDOVENOUS ABL 1ST V RTon 01-16-2018 VC ENDOVENOUS ABL 1ST V RT [address] [place] [address] Patient: GREGOR DAVALOS Exam Date: 01/16/2018 : 1960 Gender:M Ordering : DR CELESTE CAO Admission #: [id number] Family : Order #: [id number] CLICK HERE TO VIEW EXAM RADIOLOGY REPORT PROCEDURE: VEIN CENTER ENDOVENOUS ABLATION FIRST VEIN RIGHT COMPARISON: None. INDICATIONS: Pain co-occurrent and due to varicose veins of right leg OPERATIVE REPORT: The risks and benefits of the procedure had been previously discussed, and were rediscussed at length. Informed written consent was obtained. Benigno Campos and Pepe Castro assisted. Time out procedure was performed. The right lower extremity was prepared and draped in the usual sterile fashion to allow knee flexion in the sterile field. Duplex ultrasound probe was draped in a sterile cover, sterile transmission gel was used. Venous mapping was performed with the areas of dilation and large tributaries marked. The total length was 75 cm from the entry 5 cm above the medial malleolus to 3 cm below the saphenofemoral junction. The diameter of the greater saphenous vein ranged from 6-10 mm. A 30 gauge needle and 1% buffered lidocaine was used to anesthetize the entry site. A 4 mm incision was made with a scalpel and the saphenous vein was entered percutaneously under direct ultrasound guidance with a micropuncture set, a single stick was successful in gaining access. A micro-guide wire was inserted and the needle removed. A micro-set including a dilator was inserted over the microwire and the needle and dilator were removed. A 0.018 guide wire was inserted through the micro-set and threaded through the saphenous vein to the saphenofemoral junction. The dilator was removed and an introducer sheath was inserted over the wire until the end of the sheath entered the saphenofemoral junction. The dilator and wire were removed and the 600 micron fiber was introduced and placed and positioned so that it extended beyond the sheath and was 3 cm peripheral to the saphenofemoral femoral junction. Final position of the fiber was determined by ultrasound guidance and duplex imaging. Tumescent anesthetic was delivered by ultrasound guidance. 275 cc of fluid was delivered along the entire course of the saphenous vein. The solution consisted of 1000 cc of normal saline with 40 mL of 1% lidocaine and 20 mL of sodium bicarbonate. A final positioning check was made. The energy source was turned on by means of the foot pedal and the fiber and sheath were withdrawn. The total number of Joules delivered was 3515. The laser was active for 439 seconds under continuous pulse, average laser use of 8 J. Laser start time 09:14 am 01/26/2018. Laser stop time 09:28 am 01/26/2018. A duplex ultrasound revealed compressibility and flow at the saphenofemoral junction immediately after the procedure. Hemostasis at the access site was achieved. The skin incision of the saphenous vein was closed with a 4 x 4. A compression stocking was applied. Postop instructions were given. A follow up appointment was recommended and scheduled. The patient tolerated the procedure well and was discharged in good condition. CONCLUSION: 1. Technically successful endovenous laser ablation of the right great saphenous vein. Dictated by: Celeste Cao M.D. on 01/16/2018 at 09:31 Approved by: Celeste Cao M.D. on 01/16/2018 at 09:33 Normal [facility] VEIN CENTER CONSULTATIONo n 01-03-2018 VEIN CENTER CONSULTATION [address] [place] [id number] Patient: GREGOR DAVALOS Exam Date: 01/03/2018 : 1960 Gender:M Ordering : DR CELESTE CAO Admission #: [id number] Family : Order #: [id number] CLICK HERE TO VIEW EXAM RADIOLOGY REPORT PROCEDURE: VEIN CENTER CONSULTATION VEIN CENTER - OFFICE VISIT INITIAL COMPARISON: None. PROGRESS NOTES: 57-year-old male who presents with a 6 month history of bilateral lower leg pain and subcutaneous edema with 3 episodes of right lower leg cellulitis requiring hospitalization and antibiotics. The patient has worn compression stockings for 4 months as well as taken ibuprofen, both without significant relief. The patient is currently on antibiotics for right lower leg cellulitis. The patient's symptoms increase with prolonged standing over the course of the day and are partially relieved with rest and elevation. The patient denies any signs and symptoms to suggest arterial ischemia. The patient has a family history of hyper cholesterolemia in his father. No alcohol or illicit drug use. The patient quit smoking 2 months ago. Patient has a past medical history significant for anxiety disorder, back pain, restless leg syndrome. No prior surgical history. No history of deep venous thrombus or pulmonary embolus. See separate history and physical for medication list. The patient has seen the vascular surgery previously during which he had a reflux study and was prescribed compression stockings. After review of nurse notes, history and physical exam I discussed at length the pathophysiology of venous hypertension and possible treatments, therapies and strategies available. We discussed at length the importance of elevating the lower extremities above the level of the heart, increased physical activity and compression stocking use. I discussed at length the patient and his endovenous laser ablation, micro foam chemical ablation , exercise and long-term compression stocking use. Ultrasound venous reflux study performed September 25, 2017 at [facility] was discussed at length with the patient. The report demonstrates dilation in reflux in the great saphenous vein bilaterally with associated saphenofemoral junction reflux. PHYSICAL EXAM: The right leg demonstrates mild scattered varicose veins along the lateral, anterior and medial lower leg. No significant reticular or spider veins. Moderate subcutaneous edema below the knee. Circumferential erythema and redness below the knee consistent with the patient's cellulitis. No active ulceration. The left leg demonstrates no visible varicose veins. No significant reticular or spider veins. Mild subcutaneous edema below the level of the knee. No active ulceration or skin discoloration Both thighs, legs and feet were symmetrically warm to the touch. Good posterior tibial and dorsalis pedis pulses were present bilaterally. I performed ultrasound on the patient's legs demonstrating multiple incompetent varicose veins arising from the great saphenous vein, these measured up to 5 mm on the right with reflux of 2 seconds and up to 4 mm on the left with reflux up 1.5 seconds. IMPRESSION: 1. Bilateral great saphenous vein venous insufficiency 2. Bilateral lower extremity varicose veins 3. Moderate right and mild left lower extremity subcutaneous edema 4. No flow significant arterial disease 5. Right lower leg cellulitis with no active ulcerations 5. CEAP: C4a, Ep, As, Pr PLAN: 1. Endovenous laser ablation bilateral great saphenous vein, right before left 2. Bilateral micro foam chemical ablation, right before left 3. Long-term use of thigh-high compression stockings 4. Elevated legs and increased physical activity for symptomatic relief 5. Antibiotic therapy for cellulitis, under the direction of infectious disease Nurse notes, history and physical were reviewed and confirmed, see attached forms. The nurse was present throughout the physical exam and consultation Dictated by: Celeste Cao M.D. on 01/03/2018 at 10:35 Approved by: Celeste Cao M.D. on 01/03/2018 at 10:42 Normal [facility] Encounters Encounter Date Encounter Type Care Provider Facility Start: 03-20-2023 ambulatory Callum Lake MD Fa cility:[facility] Start: 03-09-2023 ambulatory Callum Olvera cility:[facility] Start: 03-06-2023 ambulatory Callum Lake MD Fa cility:[facility] Start: 02-19-2023 End: 02-20-2023 ambulatory KINZA TOPETE Facility:[facility] Start: 07-04-2022 Telephone encounter Carol Hays MD Work Phone: [facility] Comment on above: Appointment Start: 02-26-2018 End: 02-27-2018 Patient encounter procedure CELESTE Angelito KILEY Facility:[facility] Start: 02-22-2018 End: 02-23-2018 Patient encounter procedure CELESTE Angelito KILEY Facility:[facility] Start: 02-19-2018 End: 02-20-2018 Patient encounter procedure CELESTE Eaton KILEY Facility:[facility] Start: 02-13-2018 End: 02-14-2018 Patient encounter procedure CELESTE Angelito KILEY Facility:[facility] Start: 02-08-2018 End: 02-09-2018 Patient encounter procedure CELESTE CAO Facility:[facility] Start: 01-28-2018 End: 01-29-2018 Patient encounter procedure CELESTE CAO Facility:[facility] Start: 01-25-2018 End: 01-26-2018 Patient encounter procedure CELESTE Angelito KILEY Facility:[facility] Start: 01-24-2018 Patient encounter procedure KINZA TOPETE Facility:[facility] Start: 01-16-2018 End: 01-17-2018 Patient encounter procedure CELESTE CAO Facility:[facility] Start: 01-14-2018 Patient encounter procedure KINZA TOPETE Facility:[facility] Start: 01-03-2018 End: 01-04-2018 Patient encounter procedure CELESTE Eaton KILEY Facility:[facility] Start: 01-02-2018 Patient encounter procedure RADHA AREVALO Facility:[id number] Start: 12-26-2017 End: 12-28-2017 Evaluation and management of inpatient KINZA TOPETE Facility:[id number] Start: 10-29-2017 Patient encounter procedure ANITRA CHUNG Facility:[facility] Start: 09-27-2017 Patient encounter procedure KINZA TOPETE Facility:[facility] Start: 09-25-2017 Patient encounter procedure ANITRA CHUNG Facility:[id number] Start: 09-15-2017 End: 09-18-2017 Evaluation and management of inpatient KINZA TOPETE Facility:[id number] Start: 08-27-2017 Patient encounter procedure ANITRA CHUNG Facility:[facility] Start: 06-12-2017 Patient encounter procedure KINZA TOPETE Facility:[id number] Start: 06-12-2017 Patient encounter procedure KINZA TOPETE Facility:[facility] Plan of Treatment Date Care Activity Detail Author Start: 11-10-2022 Influenza vaccination INFLUENZA (Sea son Ended) [facility] Start: 03-12-2022 DEPRESSION ASSESSMENT DEPRESSION ASS ESSMENT [facility] Start: 01-19-2019 LIPID SCREEN LIPID SCREEN [facility] Start: 06-24-2018 PROSTATE CANCER SCRE ENING DISCUSSION PROSTATE CANCER SCREENING DISCUSSION [facility] Start: 01-16-2016 DIABETES SCREEN DIABETES SCREEN [facility] Start: 2012 SHINGRIX VACCINE (1 of 2) SHINGRIX V ACCINE (1 of 2) [facility] Start: 11-13-2007 COLOGUARD (FIT-DNA) COLOGUARD (FIT-D NA) [facility] Start: 11-13-2007 Colonoscopy COLONOSCOPY [facility] Start: 11-13-2007 COLORECTAL CANCER SCREENING COLORECTAL CANCER SCREENING [facility] Start: 11-13-[address] COLONOGRAPHY [facility] Start: 11-13-2007 FECAL OCCULT BLOOD FECAL OCCULT BLOO D [facility] Start: 11-13-2007 SIGMOIDOSCOPY SIGMOIDOSCOPY [facility] Start: 1981 Urine microalbumin profile DTAP,TDAP ,TD (1 - Tdap) [facility] Start: 1980 HEPATITIS C SCREENING HEPATITIS C SC REENING [facility] Start: 1980 HIV SCREENING HIV SCREENING [facility] Start: 05-13-1963 COVID-19 VACCINE (#1) COVID-19 VACCI NE (#1) [facility] Immunizations Immunization Date Immunization Notes Care Provider May ferreira 01-19-2014 influenza, seasonal, injectable Carol Hays MD Work Phone: [facility] 01-15-2013 influenza virus vacc ine, unspecified formulation Carol Hays MD Work Phone: [facility] 03-06-2008 influenza virus vacc ine, unspecified formulation Carol Hays MD Work Phone: [facility] Payers Date Payer Category Payer Unknown [employer] PPO [id number] 2018-Present [phone] [id number] [place] [address] PPO [id number] 2008 Unknown [id number] 1960 Unknown [id number] 1960 Unknown [id number] [id number] 1960 Unknown [id number] [id number] 1960 Unknown [id number] [id number] 1960 Unknown [id number] [id number]3 1960 Unknown [id number] 2.16.840.1.068236.3.579.2.593 1960 Unknown [id number] 2.16.840.1.137252.3.579.2.593 1960 Unknown [id number] [id number] 1960 Unknown [id number] 2.16.840.1.810219.3.579.2.593 1960 Unknown [id number] 2.16.840.1.577542.3.579.2.593 1960 Unknown [id number] 2.16.840.1.833644.3.579.2.593 1960 Unknown [id number] 2.16.840.1.060025.3.579.2.593 1960 Unknown [id number] 2.16.840.1.354628.3.579.2.593 1960 Unknown [id number] [id number] 1960 Unknown [id number] [id number] 1959 Unknown [id number] Self-pay Social History Date Type Detail Facility Start: 08-22-2018 Tobacco smoking stat us NHIS Ex-smoker [facility] End: 02-23-2013 History of tobacco use Current smoker [facility] End: 02-23-2013 History of tobacco use Cigarette Smoker [facility] Start: 08-22-2018 Cigarettes smoked cu rrent (pack per day) - Reported 1 [facility] Start: 08-22-2018 Tobacco use and exposure Smoke less tobacco non-user [facility] Start: 08-22-2018 Alcohol intake Current non-dr set builder of alcohol (finding) [facility] Start: 06-24-2013 Alcohol Comment remote [facility] Start: 1960 Sex Assigned At Not on file C [facility] Medical Equipment Procedure Code Equipment Code Equipment Origin al Text Equipment Identifier Dates Lens Akreos 6mm 0 D +21 Diopter 118.5 A-Constant Biconvex Hydrophilic - [id number] Start: 08-27-2018 Note 07-04-2022 Telephone Encounter - Ambika Bundy - 07/04/2022 1:13 PM EDT Note Date & Type Note Facility 07-04-2022 Miscellaneous Notes Formattin g of this note might be different from the original. Received website lead. Called both numbers in patient's chart to schedule. One is disconnected, and the other has a vm box that is full and I could not leave a message. I will have to try back later. Ambika Bundy documented in this encounter [facility] Summary Purpose Family History No Family History Records FoundNo Family History Records FoundNo Family History Records FoundNo Family History Records FoundNo Family History Records FoundNo Family History Records FoundNo Family History Records Found Advance Directives No Advanced Directives Records FoundNo Advanced Directives Records FoundNo Advanced Directives Records FoundNo Advanced Directives Records FoundNo Advanced Directives Records FoundNo Advanced Directives Records FoundNo Advanced Directives Records Found Additional Source Comments (unrecognized sect ion and content) No Status Records FoundNo Status Records FoundNo Status Records FoundNo Status Records FoundNo Status Records FoundNo Status Records FoundNo Status Records Found INFORMATION SOURCE (unrecogn ized section and content) DATE CREATED AUTHOR 02/17/2018 [facility] DATE CREATED AUTHOR AUTHOR'S ORGANIZ ATION 08/23/2018 [facility] DATE CREATED AUTHOR AUTHOR'S ORGANIZ ATION 08/27/2018 [facility] DATE CREATED AUTHOR AUTHOR'S ORGANIZ ATION 10/18/2018 [facility] DATE CREATED AUTHOR AUTHOR'S ORGANIZ ATION 07/11/2022 [facility] DATE CREATED AUTHOR AUTHOR'S ORGANIZ ATION 02/21/2023 [facility] DATE CREATED AUTHOR AUTHOR'S ORGANIZ ATION 03/02/2023 [facility] Source Comments (unrecognize d section and content) In the event this informatio n is protected by the Federal Confidentiality of Alcohol and Drug Abuse Patient Records regulations: The Federal rules restrict any use of the information to criminally investigate or prosecute any alcohol or drug abuse patient.[facility] Reason for Visit (unrecogniz ed section and content) Reason Comments Appointment Care Teams (unrecognized sec tion and content) Director Investment Banking Relationship Specialty Start Date End Date Kinza Topete [address] [address] [address] PCP - General 09/26/10 FOR RECORDS PERTAINING TO PATIENTS WHO ARE OR HAVE BEEN ENROLLED IN A CHEMICAL DEPENDENCY/SUBSTANCEABUSE PROGRAM, SOME INFORMATION MAY BE OMITTED. This clinical summary was aggregated from multiple sources. Caution should be exercised in using it in the provision of clinical care. This summary normalizes information from multiple sources, and as a consequence, information in this document may materially change the coding, format and clinical context of patient data. In addition, data may be omitted in some cases. CLINICAL DECISIONS SHOULD BE BASED ON THE PRIMARY CLINICAL RECORDS. [facility]. provides no warranty or guarantee of the accuracy or completeness of information in this document.
--- NOTE | 2023-03-08 09:24 | PM.CN ---
Consult Note: HPI Data of Consult Patient: known to practice within the last 3 years Requesting Physician: Jenny Patricia NP Primary Care Provider: Non-Staff Physician, Consult Narrative Reason for consult: f/u Narrative: Gregor Davalos a pleasant 62 year old male presents for evaluation and management of chronic pain. Today pain 3/10 stabbing in low back, pain intermittent and worse with activity and standing. Experiencing tingling and weakness to bilateral legs and toes. Patient has an upcoming l5/S1 fusion with SI wedge at [facility] with Dr Guerra march 28 2023. Patient reporting 50% improvement in left L4/5 L5/S1 area post thermal RFA and 30% relief on right L4/5 L5/S1. 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, in remission (ICD-10) Low back pain ?M54.50 - Low back pain, unspecified (ICD-10) Former smoker ?Z87.891 - Personal history of nicotine dependence (ICD-10) Meds Home Medications and Allergies Home Medications Medication Instructions Recorded Confirmed Type atorvastatin 40 mg tablet (Lipitor) 40 mg PO DAILY 08/29/22 02/13/23 History ropinirole 3 mg tablet 3 mg PO BID 08/29/22 02/13/23 History diclofenac sodium 50 mg 100 mg (2 x 50 mg) PO BID #120 tabs 01/04/23 02/13/23 Rx tablet,delayed release methocarbamol 1,000 mg tablet 1,000 mg PO TID #90 tabs 01/04/23 02/13/23 Rx zonisamide 100 mg capsule 100 mg PO DAILY 02/13/23 02/13/23 History (Zonegran) Allergies Allergy/AdvReac Type Severity Reaction Status Date / Time No Known Drug Allergies Allergy Verified 02/13/23 07:31 Exam Constitutional Documenting provider has reviewed patient's vital signs: yes Common normals: oriented x3, healthy appearing, alert and well nourished Exam limitations: physical limitations General appearance: cooperative and in distress HENMT Common normals: normocephalic, hearing grossly normal bilaterally and moist oral mucous membranes Head and scalp: normocephalic Eye Common normals: PERRL Pupil: PERRL Neck & C-Spine Common normals: full ROM General: normal visual inspection Chest Common normals: inspection of chest normal Respiratory Common normals: normal respiratory effort, no retractions and no use of accessory muscles Other: reports drinking less water and in return urinating less, denies hematuria or increase in frequency or urgancy. no loss of bowel or bladder Back & Pelvis Lumbar spine/lower back: ROM limited, pain with ROM and straight leg raise negative bilaterally Sacroiliac joints: SI joint(s) abnormal (negative thigh thrust, Alyson tong. ) Other: negative internal and external hip rotation weakness in right leg related to low back pain and radiculopathy following l5 dermatome to right leg facet pain improved with loading and flexion/extension Extremity Common normals: normal to inspection Neuro Common normals: oriented x3, CN's II-XII intact bilaterally, moves all extremities, no focal motor deficits, no sensory deficits noted and deep tendon reflexes 2+ bilaterally Sensorium/orientation: alert Gait (neuro): antalgic and assistive device used cane Motor exam: strength abnormal (4/5 in BLE) Psych Common normals: mental status grossly normal, thought process normal, cooperative, affect normal, speech normal and activity/motor behavior normal Speech: normal speech Thought process: normal thought process Assessment and Plan Assessment and Plan (1) Lumbar spondylosis: (2) Lumbar radiculopathy: (3) Muscle spasm: (4) Lumbar stenosis with neurogenic claudication: Plan continue current medications, tolerating well without side effect continue f/u with [facility] f/u with our office 3-4 months
== END 2023-03-08 08:47 | disposition home or self-care (01) ==
LOC: PM 08:46
PROVIDERS: Visit Provider Nurse Practitioner
DX: M47.816 Spondylosis without myelopathy or radiculopathy, lumbar region (principal); M54.16 Radiculopathy, lumbar region; M62.838 Other muscle spasm; M48.062 Spinal stenosis, lumbar region with neurogenic claudication
CPT/HCPCS: G0463